=== PATIENT | female | born 1995 | race Caucasian/White ===

== ENCOUNTER → 2020-05-13 16:56 | Outpatient (BNVA) | payer SELFPAY | PROVIDERS: Family Provider Family Medicine; PCP Family Medicine; Visit Provider Emergency Medicine | DX: Z11.59 Encounter for screening for other viral diseases (principal) | CPT/HCPCS: 87635 ==

== ENCOUNTER → 2020-05-23 18:31 | Outpatient (BNVA) | payer OTHER, SELFPAY | PROVIDERS: Family Provider Family Medicine; PCP Family Medicine; Visit Provider Emergency Medicine | DX: Z11.59 Encounter for screening for other viral diseases (principal) | CPT/HCPCS: 87635 ==

== ENCOUNTER → 2021-07-25 12:50 | Outpatient (BNVA) | payer SELFPAY | PROVIDERS: Family Provider Family Medicine; PCP Family Medicine; Visit Provider Registered Nurse Neonatal Intensive Care | DX: Z11.59 Encounter for screening for other viral diseases (principal); N39.0 Urinary tract infection, site not specified; Z20.2 Contact with and (suspected) exposure to infections with a predominantly sexual mode of transmission | CPT/HCPCS: 81000; 87491; 87591; 87661 ==

== ENCOUNTER → 2022-09-08 13:36 | Outpatient (BNVA) | payer MEDICAID, SELFPAY | PROVIDERS: Family Provider Family Medicine; PCP Family Medicine; Visit Provider Nurse Practitioner Women's Health | DX: N92.6 Irregular menstruation, unspecified (principal); Z34.90 Encounter for supervision of normal pregnancy, unspecified, unspecified trimester | CPT/HCPCS: 80307; 81000; 81025; 85027; 86592; 86762; 86803; 86850; 86900; 87086; 87340; 87806 ==

== ENCOUNTER 2022-09-09 12:49 | Outpatient (CLI) | payer MEDICAID, SELFPAY ==
--- NOTE | 2022-09-09 12:45 | US_ITS ---
WS: [id number] OBSTETRICAL ULTRASOUND COMPLETE HISTORY: Anatomic screening. COMPARISON: None available. Single intrauterine gestation in Cephalic presentation. Cervix is Closed and normal length. Cervical length is 3.3 cm. Normal amount of amniotic fluid surrounds the fetus. Placenta: Posterior, no previa or abruption. Placenta grade 1 Heart: 141 BPM. Four chambers are identified. RIGHT and LEFT outflow tracts are unremarkable. Anatomy: Intracranial structures and spine are normal. kidneys, stomach and urinary bladd er are unremarkable. Minimal prominence of the renal pelves but still within normal limits. Abdominal wall, three-vessel cord and cord insertion site are normal. 4 extremities are present. profile: Limited. Gender: Female. measurements: BPD = 5.4 cm = 22w2d HC = 20.4 cm = 22w3d AC = 16.4 cm = 21w3d FL = 3.7 cm = 21w4d EFW: 440 g. Biometry is internally concordant. AGA by ultrasound: 22w0d LUIS by ultrasound: 01/13/2023 US/US OB >= 14 weeks fetus [id number] IMPRESSION: 1. Single intrauterine gestation of 22w0d with an LUIS of 01/13/2023. 2. Limited evaluation of the profile. Very minimal fluid distention of t he renal pelves but still within normal limits. This can be reevaluated during late second trimester or early third trimester to ensure no progression. Otherw ise the anatomic screening survey appears normal.
== END 2022-09-09 12:50 | disposition home or self-care (01) ==
LOC: RAD 12:50
PROVIDERS: PCP Family Medicine; Visit Provider Nurse Practitioner Women's Health
DX: O09.30 Supervision of pregnancy with insufficient antenatal care, unspecified trimester (principal); Z78.9 Other specified health status; Z3A.22 22 weeks gestation of pregnancy
CPT/HCPCS: 76805

== ENCOUNTER → 2022-09-27 08:23 | Outpatient (BNVA) | payer MEDICAID, SELFPAY | PROVIDERS: PCP Family Medicine; Visit Provider Nurse Practitioner Women's Health | DX: O09.30 Supervision of pregnancy with insufficient antenatal care, unspecified trimester (principal); Z3A.00 Weeks of gestation of pregnancy not specified | CPT/HCPCS: 82950; 84315; 87086 ==

== ENCOUNTER → 2022-09-30 07:22 | Outpatient (BNVA) | payer MEDICAID, SELFPAY | PROVIDERS: PCP Family Medicine; Visit Provider Obstetrics & Gynecology | DX: O09.30 Supervision of pregnancy with insufficient antenatal care, unspecified trimester (principal); Z3A.00 Weeks of gestation of pregnancy not specified | CPT/HCPCS: 84315; 87086; 87491; 87591; 87661; 88175 ==

== ENCOUNTER → 2022-10-13 15:47 | Outpatient (BNVA) | payer MEDICAID, SELFPAY | PROVIDERS: PCP Family Medicine; Visit Provider Obstetrics & Gynecology | DX: O09.30 Supervision of pregnancy with insufficient antenatal care, unspecified trimester (principal); Z3A.26 26 weeks gestation of pregnancy | CPT/HCPCS: 76816 ==

== ENCOUNTER → 2022-10-17 08:54 | Outpatient (BNVA) | payer MEDICAID, SELFPAY | PROVIDERS: PCP Family Medicine; Visit Provider Obstetrics & Gynecology | DX: O09.30 Supervision of pregnancy with insufficient antenatal care, unspecified trimester (principal); O98.819 Other maternal infectious and parasitic diseases complicating pregnancy, unspecified trimester; B37.31 Acute candidiasis of vulva and vagina; O99.330 Smoking (tobacco) complicating pregnancy, unspecified trimester; Z3A.27 27 weeks gestation of pregnancy; F17.200 Nicotine dependence, unspecified, uncomplicated | CPT/HCPCS: 81000; 85025 ==

== ENCOUNTER → 2022-10-24 15:52 | Outpatient (BNVA) | payer MEDICAID, SELFPAY | PROVIDERS: PCP Family Medicine; Visit Provider Obstetrics & Gynecology | DX: Z34.00 Encounter for supervision of normal first pregnancy, unspecified trimester (principal) | CPT/HCPCS: 81000 ==

== ENCOUNTER → 2022-11-07 15:50 | Outpatient (BNVA) | payer MEDICAID, SELFPAY | PROVIDERS: PCP Family Medicine; Visit Provider Obstetrics & Gynecology | DX: Z34.90 Encounter for supervision of normal pregnancy, unspecified, unspecified trimester (principal) | CPT/HCPCS: 84315; 87086 ==

== ENCOUNTER → 2022-11-21 16:00 | Outpatient (BNVA) | payer MEDICAID, SELFPAY | PROVIDERS: PCP Family Medicine; Visit Provider Obstetrics & Gynecology | DX: Z34.90 Encounter for supervision of normal pregnancy, unspecified, unspecified trimester (principal) | CPT/HCPCS: 84315; 87077; 87086; 87184 ==

== ENCOUNTER → 2022-12-06 10:17 | Outpatient (BNVA) | payer MEDICAID, SELFPAY | PROVIDERS: PCP Family Medicine; Visit Provider Nurse Practitioner Women's Health | DX: O09.30 Supervision of pregnancy with insufficient antenatal care, unspecified trimester (principal); Z3A.00 Weeks of gestation of pregnancy not specified | CPT/HCPCS: 80307; 81000; 85025; 87077; 87086; 87184 ==

== ENCOUNTER → 2022-12-07 18:16 | Outpatient (BNVA) | payer MEDICAID, SELFPAY | PROVIDERS: PCP Family Medicine; Visit Provider Nurse Practitioner Women's Health | DX: O09.30 Supervision of pregnancy with insufficient antenatal care, unspecified trimester (principal); Z3A.00 Weeks of gestation of pregnancy not specified | CPT/HCPCS: 80324; 80359 ==

== ENCOUNTER → 2022-12-13 08:55 | Outpatient (BNVA) | payer MEDICAID, SELFPAY | PROVIDERS: PCP Family Medicine; Visit Provider Nurse Practitioner Women's Health | DX: Z34.00 Encounter for supervision of normal first pregnancy, unspecified trimester (principal) | CPT/HCPCS: 76815; 76817 ==

== ENCOUNTER → 2022-12-19 14:47 | Outpatient (BNVA) | payer MEDICAID, SELFPAY | PROVIDERS: PCP Family Medicine; Visit Provider Obstetrics & Gynecology | DX: O99.320 Drug use complicating pregnancy, unspecified trimester (principal); O26.10 Low weight gain in pregnancy, unspecified trimester; O23.40 Unspecified infection of urinary tract in pregnancy, unspecified trimester; O26.899 Other specified pregnancy related conditions, unspecified trimester; O99.330 Smoking (tobacco) complicating pregnancy, unspecified trimester; O09.30 Supervision of pregnancy with insufficient antenatal care, unspecified trimester; Z3A.00 Weeks of gestation of pregnancy not specified | CPT/HCPCS: 80307; 81000; 87077; 87081; 87086; 87184 ==

== ENCOUNTER 2022-12-26 12:03 | Outpatient (CLI) | payer MEDICAID, SELFPAY ==
[2022-12-26 13:26] LABS: Urine Total Protein 12.8 mg/dL (0-150)
[2022-12-26 14:07] LABS: Total Volume, Urine 1650 mL; Urine Total Protein 24 Hour 211.2 mg/24hr (0-150)
== END 2022-12-26 12:04 | disposition home or self-care (01) ==
LOC: LAB 12:07
PROVIDERS: PCP Family Medicine; Visit Provider Obstetrics & Gynecology
DX: R80.9 Proteinuria, unspecified (principal)
CPT/HCPCS: 84156

== ENCOUNTER 2022-12-31 08:53 | Inpatient (IN) | payer MEDICAID, SELFPAY ==
[2022-12-31] VITALS (89 sets, daily range): BP systolic 95–236; BP diastolic 52–129; PULSE 47–141; RESP 15–20; TEMP 35.6–36.8; O2SAT 89–100; BMI 25.7
[2022-12-31 06:32] LABS: Amphetamines Screen Urine Negative (Negative); Barbiturates Screen Urine Negative (Negative); Benzodiazepines Screen Urine Negative (Negative); Cocaine Screen Urine Negative (Negative); Opiate Screen Urine Negative (Negative); PCP Screen Urine Negative (Negative); THC Screen Urine Positive (Negative)
[2022-12-31 06:39] LABS: Actim Prom Negative
[2022-12-31 06:47] LABS: Add Urine Microscopic? YES; Bilirubin Urine Neg (Negative); Blood Urine 3+ (Negative); Glucose Urine UA Norm (Normal); Ketones Urine 1+ (Negative); Leukocyte Esterase Urine 2+ (Negative); Nitrate Urine Negative (Negative); Protein Urine 1+ (Negative); Urine Appearance Cloudy (CLEAR); Urine Color Yellow (Yellow); Urobilinogen Urine 1 mg/dL (Negative); pH Urine 6 (5-7)
[2022-12-31 06:48] LABS: Add Urine Culture? No; Bacteria Urine 2+ /hpf; RBC Urine 0-4 /hpf (0-2); WBC Urine 15-25 /hpf (0-5)
[2022-12-31] MEDS: cefTRIAXone 2,000 MG in sodium chloride 0.9% (plus) 50 ML 100 MG IV (07:48)
[2022-12-31 09:25] LABS: Basophils # 0.1 10^3/uL (0.0-0.1); Basophils % 0.3 %; Eosinophils # 0.1 10^3/uL (0.0-0.8); Eosinophils % 0.4 %; Hematocrit 36.1 % (37.0-47.0); Hemoglobin 11.7 g/dL (11.5-15.3); Lymphocytes # 1.1 10^3/uL (0.8-4.8); Lymphocytes % 6.5 %; Mean Corpuscular HGB Conc 32.4 g/dL (30.0-36.0); Mean Corpuscular Volume 92.6 fl (81-99); Mean Platelet Volume 12.6 fL (7.4-10.4); Monocytes # 0.9 10^3/uL (0.2-0.9); Monocytes % 4.9 %; Neutrophils % 87.3 %; Nucleated Red Blood Cells % 0 %; Platelet Count 225 10^3/cmm (130-400); Red Cell Distribution Width 13.5 % (12.1-15.1); White Blood Count 17.5 10^3/uL (4.0-10.0)
[2022-12-31] MEDS: ondansetron 2 mg/ML SDV 2 mL 4 MG IVP ×2 (09:25→23:43)
[2022-12-31] MEDS: dextrose 5%-lactated ringers 1,000 ML 125 ML IV (09:25)
[2022-12-31] MEDS: fentaNYL 50 mcg/mL INJ 2mL IVP ×4 (09:25→14:15)
[2022-12-31] MEDS: lactated ringers 1,000 ML 999 ML IV ×2 (14:35→15:11)
--- NOTE | 2022-12-31 15:40 | P.ANESUD_ITS ---
Pre-Anesthetic Update Pre-Anesthetic Assessment: Date of Surgery/Procedure: 01/01/23 Proposed Procedure: epidural Any changes to Pre-Anesthetic Assessment?: No Labs Last 48hrs: Short CBC 12/31/22 Range/Units 07:35 WBC 17.5 H (4.0-10.0) 10^3/ uL Hgb 11.7 (11.5-15.3) g/dL Hct 36.1 L (37.0-47.0) % MCV 92.6 (81-99) fl Plt Count 225 (130-400) 10^3/c mm Neut % (Auto) 87.3 % Neut # (Auto) 15.30 H (1.8-7.7) 10^3/u L Urine 12/31/22 Range/Units 06:00 Urine Color Yellow (Yellow) Urine Appearance Cloudy A (CLEAR) Urine pH 6 (5-7) Ur Specific Gravit y 1.020 (1.005-1.030) Urine Protein 1+ H (Negative) Urine Glucose (UA) Norm (Normal) Urine Ketones 1+ H (Negative) Urine Nitrate Negative (Negative) Urine Bilirubin Neg (Negative) Ur Leukocyte Carine ase 2+ H (Negative) Urine RBC 0-4 H (0-2) /hpf Urine WBC 15-25 H (0-5) /hpf Vitals: Temperature 98.2 F 01/01/23 07:46 Temperature Source Axillary 12/31/22 18:07 Pulse Rate 85 01/01/23 07:43 Pulse Rhythm Regular 12/31/22 10:00 Pulse Strength 3+ Normal 12/31/22 10:00 Respiratory Rate 18 12/31/22 18:07 Respiratory Effort Spontaneous 12/31/22 14:15 Respiratory Depth Normal 12/31/22 14:15 Respiratory Patter n Normal 12/31/22 12:34 Blood Pressure 126/56 01/01/23 07:43 Pulse Oximetry 90 01/01/23 06:04 Oxygen Delivery Me thod Room Air 12/31/22 10:00 Exam: Pre-Anes Outpt Exam: alert, oriented x 3, clear to auscultation gideon aterally and regular rate & rhythm Other Pertinent Information: Other Pertinent Information: Re-reviwed patient risk factors for epidural in setting of pre-exist hardware, including hardware infection, PDPH and inadequate analgesia d/t possible epidural space scarring. Patient would like to proceed Cardiac Studies: No Data to Display Anesthesia Procedures Epidural: Time Out Performed: Yes Consents Signed: Procedure Consent Consent: requested by attending/covering physician, from patient, from other, risks and benefits reviewed and patient agrees to proceed Lumbar Level: L3-L4 Epidural position: sitting Epidural procedure: sterile prep of area, 1% lidocaine to numb the area, 18 g needle, negative for paresthesia passed, neg for paresthesia, test dose given, 1.5% xylocaine 1:200k epi (5), 0.2% Ropivacaine bolus ml (5), placed PCEA, no systemic response, sterile dressing applied, L.U.D. no apparent complications and 0.2% Ropiavacaine @ mls/hr (13) Additional Comments: ASHER at7 cm, threaded to 13 cm. Adequate analgesia obtained
--- NOTE | 2022-12-31 16:02 | PM.OPHPUD ---
Labor & Delivery H&P Update Date of Procedure: December 31, 2022 Date H&P Performed: 12/19/22 Changes to previous documentation: The patient presents in active labor. Cervix progressed to 5/100/-3 Admission Diagnosis: @38w1d, late care, sterilization consult, drug use affecting , low maternal weight gain, tobacco smoking in Related Problem List Diagnoses (1) Drug use affecting : (2) Sterilization consult: (3) Late care affecting : (4) Low maternal weight gain: (5) Tobacco smoking affecting : (6) Heartburn during , antepartum:
[2022-12-31] MEDS: alum-mag-hydroxide-sime 30 mL UDC PO (18:46)
[2022-12-31] MEDS: oxytocin 30 UNIT/500 ML BAG IV (22:05)
[2023-01-01] VITALS (52 sets, daily range): BP systolic 101–135; BP diastolic 56–84; PULSE 70–147; RESP 15–16; TEMP 36.6–37.1; O2SAT 83–100
--- NOTE | 2023-01-01 06:27 | P.PCNOB_ITS ---
Delivery Note: Date of delivery: January 01, 2023 Pre-delivery diagnoses: iup@ 38w2d, Late and insufficient care, drug using during , low maternal weight gain, GERD, tobacco abuse, sterilization consult. Post-delivery diagnoses: same-delivered Procedure: Delivering Physician: paula Estimated blood loss (mL): 75 Findings: term male in the cephalic presentation. Pre-Delivery Course: The patient presented in active labor. She had AROM of thick meconium to augment labor at 8 cm. She received an epidural for pain management. She had complete cervical dilation and began pushing. Delivery: The patient had complete cervical dilation and began to push. The head delivered in the straight OP position over an intact perineum under epidural anesthesia. The nose and mouth were bulb suctioned. The shoulders and body delivered atraumatically. The baby was placed onto the mother's abdomen. The cord was clamped and cut. Cord blood was obtained. The placenta delivered spontaneously. It was inspected and found to be intact. Inspection of the perineum revealed a second-degree laceration with no extension. It was repaired in the usual fashion. Estimated blood loss 75 mL. Apgars on baby were 8 at 1 minute and 9 at 5 minutes. Weight of baby is 7 pounds 2 ounces. Mother and ba by were stable post delivery. History History History 1 Term 0 0 Miscarriages/Ectopic 0 Living Children 0 Coding Level of Care Code Acute Code for Chg Fwd Diagnoses
[2023-01-01] MEDS: HYDROcodone-acetaminophen 5-325 mg Tablet PO (07:57)
[2023-01-01] MEDS: ibuprofen 800 mg tablet PO ×3 (09:00→20:57)
[2023-01-01] MEDS: docusate sodium 100 mg Capsule PO ×2 (09:01→20:57)
[2023-01-01] MEDS: prenatal vitamin Capsule 1 CAP PO (09:01)
[2023-01-01 18:52] LABS: Hematocrit 28.3 % (37.0-47.0); Hemoglobin 9.4 g/dL (11.5-15.3); Mean Corpuscular HGB Conc 33.2 g/dL (30.0-36.0); Mean Corpuscular Hemoglobin 30.7 pg (28.0-34.0); Mean Corpuscular Volume 92.5 fl (81-99); Mean Platelet Volume 12.7 fL (7.4-10.4); Platelet Count 206 10^3/cmm (130-400); Red Blood Count 3.06 10^6/uL (4.1-5.3); Red Cell Distribution Width 13.6 % (12.1-15.1); White Blood Count 24.4 10^3/uL (4.0-10.0)
--- NOTE | 2023-01-01 19:35 | PC.NURSE ---
[facility] at bedside.
[2023-01-02 04:19] VITALS: BP 109/64; PULSE 72; RESP 16; TEMP 36.9; O2SAT 98
--- NOTE | 2023-01-02 06:19 | P.ANESASSM_ITS ---
Pre-Anesthetic Assessment Height/Weight: Height 1.6 m Weight 65.771 kg Temp Pulse Resp BP Pulse Ox O2 Del Method 97.9 F 74 16 119/73 97 Room Air 01/01/23 21:04 01/01/23 21:04 01/01/23 21:04 01/01/23 21:04 01/01/23 21:04 01/01/23 21:04 Preop Diagnosis: Desired Sterilization Operation Date: 01/02/23 07:10 Proposed Procedures p Post Bilateral Tubal Ligation(Bilateral) - Adilene Martinez MD Familial anesthetic complications: none Was Beta Sarah taken within 24 hours: N/A Was Clonidine taken within 24 hours: N/A Social Tobacco (marijuana) and No alcohol Exam alert, oriented x 3, clear to auscultation bilaterally and regular rate & rhythm Airway Submandibular: within normal limits Cervical ROM: within normal limits Mallampati: Class II Dentition: chipped History/ROS No significant history except as noted and No significant complaints Pulmonary None reported CV/HEM None reported None reported Hepatic None reported GI Gastroesophageal Reflux Disease Metabolic None reported [facility] [place], [place]/sk Scoliosis surgery with rods. Epidural placed previously for vaginal delivery without complications Neuropsych None reported Scoliosis surgery Anesthetic Plan ASA status: 2 Anesthesia: Anesthesia Evaluation, General and Regional (specify below) (spinal) Risk of > 500 ml blood loss (7ml/kg in children): No Medications/Allergies Home Medications Medication Instructions Recorded Confirmed Last Taken Type prenat.vits,bakari,spy-fpiw-mhheg 1 tab PO DAILY 09/27/22 12/31/22 12/30/22 History famotidine 20 mg tablet (Pepcid) 20 mg PO BID #60 tabs 12/06/22 12/31/22 12/30/22 Rx Allergies Allergy/AdvReac Type Severity Reaction Status Date / Time naproxen Allergy chest pains Verified 12/31/22 07:30 cephalexin AdvReac Mild ADR-Itching Verified 12/31/22 07:30 Current Medications Generic Name Dose Route Start Last Admin Trade Name Freq PRN Reason Stop Dose Admin Hydrocodone Bitart/Acetaminophen 1 - 2 tab 01/01/23 06:26 01/01/23 07:57 Hydrocodone-Acetaminophen 5-325 Mg Tablet PO 1 tab Q6H PRN Administration MODERATE TO SEVERE PAIN Al Hydrox/Mg Hydrox/Simethicone 30 ml 12/31/22 08:58 12/31/22 18:46 Nwdw-Run-Amjitkqrt-Nico 30 Ml Udc PO 30 ml Q4H PRN Administration INDIGESTION Docusate Sodium 100 mg 01/01/23 09:00 01/01/23 20:57 Docusate Sodium 100 Mg Capsule PO 100 mg BID FUENTES Administration Fentanyl 25 - 100 mcg 12/31/22 09:00 12/31/22 14:15 Fentanyl 50 Mcg/Ml Inj 2ml IVP 50 mcg Q1H PRN Administration SEVERE PAIN Dextrose/Lactated Ringer's 1,000 mls @ 125 mls/hr 12/31/22 09:00 12/31/22 14:35 Dextrose 5%-Lactated Ringers IV Infused .Q8H FUENTES Infusion Lactated Ringer's 1,000 mls @ 999 mls/hr 12/31/22 14:33 12/31/22 15:15 Lactated Ringers IV 125 mls/hr .Q1H1M PRN Infusion See label comments Ropivacaine 200 mg in 100 mls @ 13 mls/hr 12/31/22 14:45 01/01/23 06:15 Naropin Premix EPIDURAL 0 mls/hr .Q7H42M FUENTES Infusion Oxytocin 30 unit in 500 mls @ 1 mls/hr 12/31/22 22:00 01/01/23 09:00 Pitocin IV Infused .Q24H FUENTES Titration Protocol 1 MILLIUNIT/MIN Ibuprofen 800 mg 01/01/23 09:00 01/01/23 20:57 Ibuprofen 800 Mg Tablet PO 800 mg TID FUENTES Administration Ondansetron HCl 4 mg 12/31/22 08:58 12/31/22 23:43 Ondansetron 2 Mg/Ml Sdv 2 Ml IVP 4 mg Q4H PRN Administration NAUSEA AND VOMITING Multivit/Folic Acid/Iron 1 cap 01/01/23 09:00 01/01/23 09:01 Vitamin Capsule PO 1 cap DAILY FUENTES Administration PFSH Anesthesia Medical History No pertinent past medical history Neghx: htn,dm,thyroid,dvt/pe PCP: Dr. Garrett Surgical History H/O spinal fusion (~2012) Performed in [place], [place] Family History Denies family history of Colon cancer Ovarian cancer Diabetes Heart disease Breast cancer Family history of thyroid problem Hypertension Uterine cancer Stroke Hyperchloremia Social History Smoking and tobacco status: current every day smoker cigarettes Alcohol intake: never Substance/Drug Use: never Female Reproductive History : 1 Data Anesthesia 01/01/23 18:17 Short CBC 12/31/22 01/01/23 Range/Units 07:35 18:17 WBC 17.5 H 24.4 H (4.0-10.0) 10^3/uL Hgb 11.7 9.4 L (11.5-15.3) g/dL Hct 36.1 L 28.3 L (37.0-47.0) % MCV 92.6 92.5 (81-99) fl Plt Count 225 206 (130-400) 10^3/cmm Neut % (Auto) 87.3 % Neut # (Auto) 15.30 H (1.8-7.7) 10^3/uL Urine 12/31/22 Range/Units 06:00 Urine Color Yellow (Yellow) Urine Appearance Cloudy A (CLEAR) Urine pH 6 (5-7) Ur Specific [place] 1.020 (1.005-1.030) Urine Protein 1+ H (Negative) Urine Glucose (UA) Norm (Normal) Urine Ketones 1+ H (Negative) Urine Nitrate Negative (Negative) Urine Bilirubin Neg (Negative) Ur Leukocyte Esterase 2+ H (Negative) Urine RBC 0-4 H (0-2) /hpf Urine WBC 15-25 H (0-5) /hpf Cardiac Studies: No Data to Display
[2023-01-02] MEDS: famotidine 20 mg/2 mL INJ IVP (06:57)
[2023-01-02] MEDS: metoclopramide 5 mg/mL SDV 2 mL 10 MG IVP (06:58)
--- NOTE | 2023-01-02 06:59 | W.PM.OPSUD ---
Surgery/Procedure H&P Update DATE OF PROCEDURE: January 02, 2023 DATE H&P PERFORMED: 12/19/22 H&P UPDATE INFORMATION: I have reviewed H&P completed within last 30 days, I have examined patient prior to procedure and No changes to prior documentation CHANGES TO PREVIOUS DOCUMENTATION: The patient desires to proceed with sterilization PREOP DIAGNOSIS: Desired Sterilization PLANNED PROCEDURE: Operation Date: 01/02/23 07:10 Proposed Procedures p Post Bilateral Tubal Ligation(Bilateral) - Adilene Martinez MD
[2023-01-02] MEDS: citric acid-sodium citrate 30 mL UDC PO (07:00)
--- NOTE | 2023-01-02 08:41 | PM.DCS ---
Discharge Providers Date of Admission: 12/31/22 08:53 Date of Discharge: January 02, 2023 Attending Provider at Admission: Adilene Martinez MD Attending Provider at Discharge: Adilene Martinez MD Primary Care Provider: Dionna Garrett MD Diagnoses at Discharge Discharge Diagnosis (1) Drug use affecting : Status: Acute Permanent problem details: Positive amphetamines and methamphetamines at 34 weeks (2) Sterilization consult: Status: Acute (3) Late care affecting : Status: Acute (4) Low maternal weight gain: Status: Acute (5) Tobacco smoking affecting : Status: Acute (6) Heartburn during , antepartum: Status: Acute Reason for Visit Reason for Visit: contractions and possible ROM Hospital Course Hospital Course The patient was admitted for labor at term. She had spontaneous delivery of a term male . She was supposed to have a tubal, but the patient changed her mind. She is interested in LARC, instead. She requested discharge on PP day #1 Physical Exam Narrative: She is doing well this morning. No concerns. Const: COMMON NORMALS: no acute distress, average body habitus, patient oriented x3, no limitations, healthy appearing, alert and well nourished GENERAL APPEARANCE: cooperative, comfortable, well kempt and well developed ORIENTATION/CONSCIOUSNESS: Yes awake, Yes oriented to person, Yes oriented to place and Yes oriented to time Resp: COMMON NORMALS: normal respiratory effort EFFORT & INSPECTION: Yes able to speak in complete sentences GI: COMMON NORMALS: Soft to palpation and non-tender PALPATION: Yes Soft to palpation Extremity: COMMON NORMALS: no calf tenderness Neuro: COMMON NORMALS: patient oriented x3 SENSORIUM/ORIENTATION: Yes alert, Yes oriented to person, Yes oriented to place and Yes oriented to time Psych: APPEARANCE: Yes well kempt Urinary Catheter Management: Oliveira: Cath Placed During This Visit: yes, but has since been removed by the nurse Reason for Continuing Indwelling Catheter: Decision to DC Catheter Urinary Catheter Date of Insertion: 12/31/22 Urinary Catheter Time of Insertion: 16:15 Date Urinary Catheter Removed: 01/01/23 Time Urinary Catheter Discontinued: 04:40 Discharge Data Studies Completed and Pending Laboratory Results WBC 24.4 10^3/uL (4.0-10.0) H 01/01/23 18:17 RBC 3.06 10^6/uL (4.1-5.3) L 01/01/23 18:17 Hgb 9.4 g/dL (11.5-15.3) L 01/01/23 18:17 Hct 28.3 % (37.0-47.0) L 01/01/23 18:17 MCV 92.5 fl (81-99) 01/01/23 18:17 MCH 30.7 pg (28.0-34.0) 01/01/23 18:17 MCHC 33.2 g/dL (30.0-36.0) 01/01/23 18:17 RDW 13.6 % (12.1-15.1) 01/01/23 18:17 Plt Count 206 10^3/cmm (130-400) 01/01/23 18:17 MPV 12.7 fL (7.4-10.4) H 01/01/23 18:17 Neut % (Auto) 87.3 % 12/31/22 07:35 Lymph % (Auto) 6.5 % 12/31/22 07:35 [place] % (Auto) 4.9 % 12/31/22 07:35 Eos % (Auto) 0.4 % 12/31/22 07:35 Baso % (Auto) 0.3 % 12/31/22 07:35 Neut # (Auto) 15.30 10^3/uL (1.8-7.7) H 12/31/22 07:35 Lymph # (Auto) 1.1 10^3/uL (0.8-4.8) 12/31/22 07:35 [place] # (Auto) 0.9 10^3/uL (0.2-0.9) 12/31/22 07:35 Eos # (Auto) 0.1 10^3/uL (0.0-0.8) 12/31/22 07:35 Baso # (Auto) 0.1 10^3/uL (0.0-0.1) 12/31/22 07:35 Nucleated RBC % (auto) 0 % 12/31/22 07:35 Nucleated RBCs # 0.0 /100WBC 12/31/22 07:35 Insulin-like GF I Negative 12/31/22 06:27 Urine Color Yellow (Yellow) 12/31/22 06:00 Urine Appearance Cloudy (CLEAR) A 12/31/22 06:00 Urine pH 6 (5-7) 12/31/22 06:00 Ur Specific [place] 1.020 (1.005-1.030) 12/31/22 06:00 Urine Protein 1+ (Negative) H 12/31/22 06:00 Urine Glucose (UA) Norm (Normal) 12/31/22 06:00 Urine Ketones 1+ (Negative) H 12/31/22 06:00 Urine Blood 3+ (Negative) H 12/31/22 06:00 Urine Nitrate Negative (Negative) 12/31/22 06:00 Urine Bilirubin Neg (Negative) 12/31/22 06:00 Urine Urobilinogen 1 mg/dL (Negative) H 12/31/22 06:00 Ur Leukocyte Esterase 2+ (Negative) H 12/31/22 06:00 Urine RBC 0-4 /hpf (0-2) H 12/31/22 06:00 Urine WBC 15-25 /hpf (0-5) H 12/31/22 06:00 Ur Squamous Epith Cells 10-15 /hpf (0-5) H 12/31/22 06:00 Amorphous Sediment Not Reportable 12/31/22 06:00 Urine Bacteria 2+ /hpf (NONE) H 12/31/22 06:00 Urine Opiates Screen Negative ng/mL (Negative) 12/31/22 06:00 Ur Barbiturates Screen Negative ng/mL (Negative) 12/31/22 06:00 Ur Phencyclidine Scrn Negative ng/mL (Negative) 12/31/22 06:00 Ur Amphetamines Screen Negative ng/mL (Negative) 12/31/22 06:00 U Benzodiazepines Scrn Negative ng/mL (Negative) 12/31/22 06:00 Urine Cocaine Screen Negative ng/mL (Negative) 12/31/22 06:00 U Marijuana (THC) Screen Positive ng/mL (Negative) H 12/31/22 06:00 Vitals Last Vital Signs Temp 98.4 F 01/02/23 04:19 Pulse 72 01/02/23 04:19 Resp 16 01/02/23 04:19 BP 109/64 01/02/23 04:19 Pulse Ox 98 01/02/23 04:19 O2 Del Method Room Air 01/02/23 04:19 Discharge Plan Discharge Patient Disposition: Home Condition: Stable Prescriptions: Continued prenat.vits,bakari,ror-nyqw-yjwmt Tablet 1 tab PO DAILY famotidine [Pepcid] 20 mg tablet 20 mg PO BID Qty: 60 1RF Discharge Orders: Discharge Order (Routine); Ordered 01/02/23 Ordered By: Adilene Martinez Patient Instructions: Opioid Safety Discharge Attestations Time Spent in Discharge Care*: less than 30 min Quality Metrics Clinical Quality Measures [ No reported AMI, CVA or VTE this stay] Coding Level of Care Code Acute Code for Chg Fwd Diagnoses Drug use affecting O99.320 Sterilization consult Z30.09 Late care affecting O09.30 Low maternal weight gain O26.10 Tobacco smoking affecting O99.330 Heartburn during , antepartum O26.899; R12
[2023-01-02 09:00] VITALS: BP 104/76; PULSE 67; RESP 16; TEMP 36.5; O2SAT 97
[2023-01-02] MEDS: docusate sodium 100 mg Capsule PO (09:17)
[2023-01-02] MEDS: famotidine 20 mg Tablet PO (09:17)
[2023-01-02] MEDS: ibuprofen 800 mg tablet PO ×2 (09:17→15:33)
[2023-01-02] MEDS: prenatal vitamin Capsule 1 CAP PO (09:17)
--- NOTE | 2023-01-02 09:25 | ANE.PACU2 ---
Inpatient post-anesthesia follow up: Airway intact: Yes Vital signs: Temperature 98.4 F Pulse Rate 72 Respiratory Rate 16 Blood Pressure 109/64 Pulse Oximetry 98 Oxygen Delivery Me thod Room Air Oxygen Flow Rate Fraction of Inspir ed Oxygen Hydration adequate: Yes Nausea and vomiting: No Pain level: 2 Mental status: Baseline
[2023-01-02 15:34] VITALS: BP 115/76; PULSE 77; RESP 16; TEMP 36.6; O2SAT 98
[2023-01-02 18:34] VITALS: BP 120/72; PULSE 64; RESP 16; TEMP 37.1; O2SAT 99
== END 2023-01-02 18:34 | disposition home or self-care (01) | DRG 807 ==
LOC: OPOB 08:53 → OBGYN 08:53
PROVIDERS: Admitting Provider Obstetrics & Gynecology; PCP Family Medicine; Visit Provider Obstetrics & Gynecology
DX: O99.324 Drug use complicating childbirth (principal); Z37.0 Single live birth; F12.90 Cannabis use, unspecified, uncomplicated; O99.334 Smoking (tobacco) complicating childbirth; F17.210 Nicotine dependence, cigarettes, uncomplicated; O77.0 Labor and delivery complicated by meconium in amniotic fluid; O70.1 Second degree perineal laceration during delivery; Z3A.38 38 weeks gestation of pregnancy; O26.893 Other specified pregnancy related conditions, third trimester; K21.9 Gastro-esophageal reflux disease without esophagitis; Z87.440 Personal history of urinary (tract) infections
CPT/HCPCS: 36415; 51702; 59025; 59409; 80306; 81001; 84112; 85025; 85027; 96374; 96376; 99211; J0696; J1100; J2370; J2405; J2590; J2704; J2765; J2795; J3010; J3490; J7120; J7121

== ENCOUNTER → 2023-08-09 17:04 | Outpatient (BNVA) | payer MEDICAID, SELFPAY | PROVIDERS: PCP Family Medicine; Visit Provider Nurse Practitioner | DX: J02.9 Acute pharyngitis, unspecified (principal) | CPT/HCPCS: 87880 ==

== ENCOUNTER → 2023-09-03 18:15 | Outpatient (BNVA) | payer MEDICAID, SELFPAY | PROVIDERS: PCP Family Medicine; Visit Provider Emergency Medicine | DX: J02.9 Acute pharyngitis, unspecified (principal) | CPT/HCPCS: 87071; 87880 ==

== ENCOUNTER 2024-04-11 15:16 | Emergency (ER) | payer MEDICAID, SELFPAY ==
[2024-04-11 15:23] VITALS: BP 101/61; PULSE 85; RESP 16; TEMP 36.8; O2SAT 98; BMI 20.9
--- NOTE | 2024-04-11 15:41 | ED_ITS ---
HPI - Dental/Oral General: Chief complaint: Dental/Oral Stated complaint: dental problems Time Seen by Provider: 04/11/24 15:28 History of Present Illness: 28-year-old female comes in today for co mplaints of dental pain. Patient reports difficulty with opening her mouth wide due to pain. Patient appears nontoxic. Minimal swelling and bruising is noted to the face. Patient does have some mild swelling to the left side of the face. Respirations are even. Patient is managing secretions well. Patient appears in moderate pain. Related Data Previous Rx's Medication Instructions Recorded amoxicillin 875 mg tablet 875 mg PO BID 7 days #14 tabs 04/10/24 amoxicillin 875 mg-potassium 1 tab PO BID #14 tabs 04/11/24 clavulanate 125 mg tablet hydrocodone 5 mg-acetaminophen 325 1 tab PO Q6H PRN pain #7 tabs 04/11/24 mg tablet Allergies Allergy/AdvReac Type Severity Reaction Status Date / Time naproxen Allergy chest pains Verified 04/10/24 10:05 cephalexin AdvReac Mild ADR-Itching Verified 04/10/24 10:05 Review of Systems General: Reports: 10 or more systems reviewed and unremarkable except in HPI and below ENMT: Reports: dental pain PFSH ED PFSH: Medical History 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 Garrett Surgical History H/O spinal fusion (~2012) Performed in [place], [place]. Family History Denies family history of Colon cancer Ovarian cancer Diabetes Heart disease Breast cancer Family history of thyroid problem Hypertension Uterine cancer Stroke Hyperchloremia Social History Smoking and tobacco/nicotine status: unknown if used tobacco/nicotine Alcohol intake: never Substance/Drug Use: never Physical Exam Const: COMMON NORMALS: alert HENMT: COMMON NORMALS: normocephalic HEAD & SCALP: normocephalic MOUTH: Normal oral and palatal mucosa present OTHER: Mild left-sided facial swelling, decreased range of motion of the jaw due to pain. Posterior pharynx is pink and moist. No abnormal symmetry is noted in the posterior pharynx. Neck/C-Spine: COMMON NORMALS: full ROM Resp: COMMON NORMALS: normal respiratory effort and clear to auscultation bilaterally AUSCULTATION: clear to auscultation bilaterally Cardio: COMMON NORMALS: regular rate and regular rhythm RATE: regular rate RHYTHM: regular rhythm Back/Pelvis: COMMON NORMALS: thoracic and lumbar spine normal to inspection Extremity: COMMON NORMALS: full ROM Neuro: SENSORIUM/ORIENTATION: Yes alert Skin: COMMON NORMALS: turgor normal GENERAL SKIN EXAM: turgor normal Course Vital Signs: Vital signs: Vital Signs Temperature 98.2 F 04/11/24 15:23 Pulse Rate 85 04/11/24 15:23 Respiratory Rate 16 04/11/24 15:23 Blood Pressure 101/61 04/11/24 15:23 Pulse Oximetry 98 04/11/24 15:23 Oxygen Delivery Me thod Room Air 04/11/24 15:23 MDM - Dental/Oral Medical Decision Making 28-year-old female comes in today for complaints of jaw pain and difficulty opening mouth after dental procedure done on Monday. Patient had a wisdom tooth extracted on the left lower jaw Monday. Patient has reported increased pain and discomfort. Patient appears nontoxic. No significant redness or bruising is noted to the face. Minimal swelling is noted. Posterior pharynx is symmetrical with open airway. Lungs are clear to auscultation. Patient is managing secretions well. Vital signs are normal. Differential diagnosis dental abscess, trismus, malingering, dental pain. No signs of severe illness or injury is noted. Patient will be written for Augmentin for better coverage of dental infection. Patient will be given 7 tablets of hydrocodone to use for severe pain. Patient was given an injection of Toradol and dexamethasone in the ER for discomfort. Patient reported understanding of care plan need for follow- up or return to the ER. No radiology studies performed this visit Discharge Plan Discharge Patient Disposition: Home Clinical Impression: Dental abscess Condition: Stable Prescriptions: New amoxicillin-pot clavulanate 875-125 mg tablet 1 tab PO BID Qty: 14 0RF hydrocodone-acetaminophen 5-325 mg tablet 1 tab PO Q6H PRN (Reason: pain) Qty: 7 0RF No Action amoxicillin 875 mg tablet 875 mg PO BID 7 Days Qty: 14 0RF Discharge Orders: Discharge ED (Routine); Ordered 04/11/24 Ordered By: Doc Reyez Referrals: Dionna Garrett MD [Primary Care Provider] - Discharge Diet: Usual diet Discharge Activity: Increase activity as tolerated Patient Instructions: Opioid Safety, Pain Management Activity Restrictions/Additional Instructions: Drink plenty of water. Continue with acetaminophen and ibuprofen to help control pain. Use hydrocodone for severe pain. Stop plain amoxicillin and add the amoxicillin with potassium clavulanate for treatment of possible infection. Use ice or heat for further pain relief. Follow-up with dentist at soonest available appointment. Return to ED for new concerns. Coding Level of Care Code ED Client Relations Specialist for Viry Metcalf
[2024-04-11] MEDS: HYDROcodone-acetaminophen 7.5-325 mg Tablet 1 TAB PO (16:09)
[2024-04-11] MEDS: ketorolac 30 mg/mL INJ IM (16:10)
[2024-04-11] MEDS: dexamethasone 10 mg/mL INJ IM (16:12)
[2024-04-11 16:14] VITALS: BP 101/61; PULSE 85; RESP 15; O2SAT 98
== END 2024-04-11 16:16 | disposition home or self-care (01) ==
PROVIDERS: Emergency Provider Nurse Practitioner Family; PCP Family Medicine
DX: K04.7 Periapical abscess without sinus (principal)
CPT/HCPCS: 96372; 99284; J1100; J1885

== ENCOUNTER 2024-04-13 10:25 | Emergency (ER) | payer MEDICAID, SELFPAY ==
[2024-04-13] VITALS (11 sets, daily range): BP systolic 91–118; BP diastolic 52–94; PULSE 57–99; RESP 16–18; TEMP 36.7; O2SAT 95–99; BMI 20.9
--- NOTE | 2024-04-13 10:56 | CTR_ITS ---
PROCEDURE INFORMATION: Exam: CT Neck With Contrast Exam date and time: 04/13/2024 11:35 AM Age: 28 years old Clinical indication: Neck pain and other: Left mandibular pain; Prior surgery; Surgery date: 3-7 days post-operative; Surgery type: Left lower wisdom tooth extraction; Additional info: Neck swelling, left lower wisdom tooth extraction 6 days ago; Trismus and TECHNIQUE: Imaging protocol: Computed tomography of the neck with contrast. Radiation optimization: All CT scans at this facility use at least one of these dose optimization techniques: automated exposure control; mA and/or kV adjustment per patient size (includes targeted exams where dose is matched to clinical indication); or iterative reconstruction. Contrast material: OMNIPAQUE 350; Contrast volume: 80 ml; Contrast route: INTRAVENOUS (IV); COMPARISON: No relevant prior studies available. RADIATION DOSE METRICS: Total DLP (mGy-cm): 176.74 FINDINGS: Salivary glands: Normal. Glands are normal in size. Teeth: Post left mandibular wisdom tooth extraction. There is inflammatory changes with ill-defined collection at the medial aspect of the left mandibular wisdom tooth surgical site measuring 1.2 x 2.4 cm extending posteriorly, lateral to the left palatine tonsil. Pharynx: There is fat stranding extending caudally along the left aspect of the oropharynx at the level of the left piriform sinus. There is secondary mild mass effect on the left palatine tonsil which is deviated medially. Prevertebral and retropharyngeal spaces: Unremarkable. Larynx: Unremarkable. Epiglottis is normal. Thyroid: Hypodense left thyroid nodule measuring 5 mm surgical changes of posterior instrumentation of the thoracic spine. Trachea: Visualized trachea is unremarkable. Lungs: Unremarkable as visualized. Lymph nodes: Prominent reactive left upper cervical lymph nodes measuring up to 1.2 cm in short axis at level 2A. Bones/joints: Segmentation anomaly at C3-C4 level. Soft tissues: Unremarkable. No significant soft tissue swelling. CT/CT neck w con* [id number] IMPRESSION: Post left mandibular wisdom tooth extraction with inflammatory changes along the left aspect of the oropharynx and hypopharynx and early abscess formation lateral to the left palatine tonsil measuring 2.4 x 1.2 cm. COMMENTS: Consistent with the [employer]'s Incidental Findings Committee white paper (J Am Gwen Radiol 2015): In patients under 35 years old with an incidental thyroid nodule equal to or greater than [address], MRI or extrathyroidal US, further evaluation with dedicated thyroid US is recommended for patients with normal life expectancy and without comorbidities. For smaller nodules without suspicious features, no further evaluation or follow up is recommended.
--- NOTE | 2024-04-13 11:01 | ED_ITS ---
HPI - Neck Pain/Injury 2 General: Chief Complaint: Dental/Oral Stated Complaint: Left side lower jaw pain, can't swallow Time Seen by Provider: 04/13/24 10:49 History of Present Illness: 28-year-old female who presents with inc reased pain and swelling in the left upper neck and jaw area. The patient had her left lower wisdom tooth extracted on Monday. Reportedly during the nerve block, vascular structure was penetrated. The patient had transient blindness in her left eye which had resolved. Patient has had gradually worsening swelling in the left submandibular area, primarily at the base of her mandible. She states that she is having increasing difficulty swallowing as well as difficulty opening her mouth. Patient has previously been seen at urgent care as well as in the emergency department earlier in the week because of the same issue. She was given a steroid injection which did help transiently. She has not had a fever. She has been on Augmentin as well as taking hydrocodone, alternated with Tylenol. Related Data Previous Rx's Medication Instructions Recorded amoxicillin 875 mg-potassium 1 tab PO BID #14 tabs 04/11/24 clavulanate 125 mg tablet hydrocodone 5 mg-acetaminophen 325 1 tab PO Q6H PRN pain #7 tabs 04/11/24 mg tablet Allergies Allergy/AdvReac Type Severity Reaction Status Date / Time naproxen Allergy chest pains Verified 04/10/24 10:05 cephalexin AdvReac Mild ADR-Itching Verified 04/10/24 10:05 Review of Systems 2 General: Reports: 10 or more systems reviewed and unremarkable except in HPI and below ENMT: Reports: throat pain and odynophagia; Denies: change in hearing PFSH ED 2 PFSH: Medical History 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 Garrett Surgical History H/O spinal fusion (~2012) Performed in [place], [place]. Family History Denies family history of Colon cancer Ovarian cancer Diabetes Heart disease Breast cancer Family history of thyroid problem Hypertension Uterine cancer Stroke Hyperchloremia Social History Smoking and tobacco/nicotine status: unknown if used tobacco/nicotine Alcohol intake: never Substance/Drug Use: never Physical Exam 2 Const: COMMON NORMALS: alert and well nourished OTHER: Patient appears mildly ill HENMT: COMMON NORMALS: external ears normal and Normal external nose present NOSE: Normal external nose present and Normal nares present EXTERNAL EAR: Y es external ears normal, Yes mastoids normal and Yes no periauricular adenopathy MOUTH: other (Patient has significant limitation in opening her mouth, able to open 1 cm) THROAT: other (Difficult to visualize the patient's posterior oropharynx due to trismus) OTHER: Left posterior oropharynx appears swollen. There is no subungual swelling. Neck/C-Spine: OTHER: Tenderness and swelling in the left submandibular area, difficult to assess if this is lymphadenopathy versus possible mass versus hematoma versus abscess Resp: OTHER: No acute respiratory distress Cardio: OTHER: Normal heart rate Neuro: SENSORIUM/ORIENTATION: Yes alert Course 2 ED course: Patient had an IV placed and labs obtained. She has been given IV Decadron 10 mg, Zofran for nausea and morphine for pain. She had a CT scan as well as laboratory studies. Her white blood cell count is normal. She does have an elevated CRP. CT scan shows an abscess in the oropharynx and hypopharynx region lateral to the palatine tonsil. Given her significant trismus and worsening despite antibiotics, the patient will need admission and probable operative drainage. We do not have ENT available here. Have discussed this with the patient and her mother. They request [facility] for transfer. 1210pm transfer center has been contacte d for transfer. Images have been clouded 1231 - discussed with Dr. Shields (Oral Surgery) at [facility] - patient will need operative drainage of abscess. Requests the patient be transferred to the ED. patient has been accepted by Dr. Muniz at the emergency department at [facility] Vital Signs: Vital signs: Vital Signs Temperature 98.1 F 04/13/24 10:32 Pulse Rate 82 04/13/24 13:15 Respiratory Rate 17 04/13/24 13:15 Blood Pressure 96/57 04/13/24 13:15 Pulse Oximetry 97 04/13/24 13:15 Oxygen Delivery Me thod Room Air 04/13/24 13:15 MDM - Neck Pain/Injury Medical Decision Making 28-year-old female, status post left posterior wisdom tooth extraction 6 days ago with possible vascular injury. The patient presents today with increased swelling in the left posterior oropharynx region with associated trismus and difficulty swallowing. She is having no issues with airway at this time. She is tolerating her secretions. Will start an IV, give her IV fluids as well as IV Decadron 10 mg and IV morphine for pain and Zofran for nausea. Will obtain labs and a CT with contrast of the soft tissues of her neck. Differential includes hematoma, abscess, cellulitis, retained dental root, lymphadenopathy Lab Data 04/13/24 11:16 04/13/24 11:[address] 04/13/24 10:56 IMPRESSION: Post left mandibular wisdom tooth extraction with inflammatory changes along the left aspect of the oropharynx and hypopharynx and early abscess formation lateral to the left palatine tonsil measuring 2.4 x 1.2 cm. COMMENTS: Consistent with the [employer]'s Incidental Findings Committee white paper (J Am Gwen Radiol 2015): In patients under 35 years old with an incidental thyroid nodule equal to or greater than [address], MRI or extrathyroidal US, further evaluation with dedicated thyroid US is recommended for patients with normal life expectancy and without comorbidities. For smaller nodules without suspicious features, no further evaluation or follow up is recommended. Laboratory Results WBC 6.95 10^3/uL (3.29-11.43) 04/13/24 11:16 RBC 3.89 10^6/uL (3.85-5.65) 04/13/24 11:16 Hgb 11.90 g/dL (11.27-16.99) 04/13/24 11:16 Hct 35.3 % (36-47) L 04/13/24 11:16 MCV 90.7 fl (85-98) 04/13/24 11:16 MCH 30.6 pg (27-33) 04/13/24 11:16 MCHC 33.7 g/dL (30-55) 04/13/24 11:16 RDW 12.5 % (12.1-15.1) 04/13/24 11:16 Plt Count 167 10^3/cmm (157-399) 04/13/24 11:16 MPV 10.8 fL (7.4-10.4) H 04/13/24 11:16 Neut % (Auto) 75.9 % 04/13/24 11:16 Lymph % (Auto) 14.1 % 04/13/24 11:16 Gaines % (Auto) 9.2 % 04/13/24 11:16 Eos % (Auto) 0.3 % 04/13/24 11:16 Baso % (Auto) 0.1 % 04/13/24 11:16 Neut # (Auto) 5.27 10^3/uL (1.8-7.7) 04/13/24 11:16 Lymph # (Auto) 1.0 10^3/uL (0.8-4.8) 04/13/24 11:16 Gaines # (Auto) 0.6 10^3/uL (0.2-0.9) 04/13/24 11:16 Eos # (Auto) 0.0 10^3/uL (0.0-0.8) 04/13/24 11:16 Baso # (Auto) 0.0 10^3/uL (0.0-0.1) 04/13/24 11:16 Nucleated RBC % (auto) 0 % 04/13/24 11:16 Nucleated RBCs # 0.0 /100WBC 04/13/24 11:16 ESR 6 mm/hr (0-15) 04/13/24 11:16 Sodium 140 mmol/L (136-145) 04/13/24 11:16 Potassium 3.6 mmol/L (3.5-5.1) 04/13/24 11:16 Chloride 104 mmol/L (98-107) 04/13/24 11:16 Carbon Dioxide 24 mmol/L (22-29) 04/13/24 11:16 Anion Gap 15.6 (5-19) 04/13/24 11:16 BUN 18 mg/dL (6-20) 04/13/24 11:16 Creatinine 0.6 mg/dL (0.5-0.9) 04/13/24 11:16 GFR Calculation 118.2 mL/min (90-130) 04/13/24 11:16 Glucose 86 mg/dL (65-115) 04/13/24 11:16 Calculated Osmolality 291 mOsm/kg (285-295) 04/13/24 11:16 Lactic Acid 0.9 mmol/L (0.5-2.2) 04/13/24 11:16 Calcium 8.5 mg/dL (8.5-10.5) 04/13/24 11:16 Total Bilirubin 0.5 mg/dL (0.15-1.2) 04/13/24 11:16 AST 15 U/L (0-32) 04/13/24 11:16 ALT 13 U/L (0-33) 04/13/24 11:16 Alkaline Phosphatase 59 U/L (35-105) 04/13/24 11:16 C-Reactive Protein 33.5 mg/L (0.0-4.9) H 04/13/24 11:16 Total Protein 7.6 g/dL (6.6-8.7) 04/13/24 11:16 Albumin 4.2 g/dL (3.5-5.2) 04/13/24 11:16 Globulin 3.4 g/dL (1.3-4.6) 04/13/24 11:16 All radiology interpretation(s) finalized by discharge ED provider radiology interpretation(s): Patient has had a CT scan of her soft tissues of her neck which showed an abscess but shows an abscess measuring 2.4 cm x 1.2 cm in the left oropharynx and hypopharynx region lateral to the palatine tonsil Discharge Plan Discharge Patient Disposition: Xfer Short-Term Hosp Clinical Impression: Abscess after procedure, Oropharynx infection, Trismus Condition: Stable Discharge Orders: Transfer Out of Facility (Order); Ordered 04/13/24 Ordered By: Neema Wick Coding Level of Care Code ED Chief Lifestyle Officer for Vriy Metcalf
[2024-04-13 11:23] LABS: Basophils % 0.1 %; Eosinophils % 0.3 %; Hematocrit 35.3 % (36-47); Lymphocytes % 14.1 %; Mean Corpuscular HGB Conc 33.7 g/dL (30-55); Mean Corpuscular Hemoglobin 30.6 pg (27-33); Mean Corpuscular Volume 90.7 fl (85-98); Mean Platelet Volume 10.8 fL (7.4-10.4); Monocytes # 0.6 10^3/uL (0.2-0.9); Monocytes % 9.2 %; Neutrophils # 5.27 10^3/uL (1.8-7.7); Neutrophils % 75.9 %; Nucleated Red Blood Cells % 0 %; Platelet Count 167 10^3/cmm (157-399); Red Blood Count 3.89 10^6/uL (3.85-5.65); Red Cell Distribution Width 12.5 % (12.1-15.1); White Blood Count 6.95 10^3/uL (3.29-11.43)
[2024-04-13 11:27] LABS: Erythrocyte Sedimentation Rate 6 mm/hr (0-15)
[2024-04-13 11:39] LABS: Lactic Sepsis W/Reflex 0.9 mmol/L (0.5-2.2)
[2024-04-13 11:40] LABS: Alanine Aminotransferase 13 U/L (0-33); Albumin Level 4.2 g/dL (3.5-5.2); Alkaline Phosphatase 59 U/L (35-105); Anion Gap 15.6 (5-19); Aspartate Amino Transferase 15 U/L (0-32); Blood Urea Nitrogen 18 mg/dL (6-20); C Reactive Protein 33.5 mg/L (0.0-4.9); Calcium 8.5 mg/dL (8.5-10.5); Carbon Dioxide 24 mmol/L (22-29); Chloride 104 mmol/L (98-107); Globulin 3.4 g/dL (1.3-4.6); Glomerular Filtration Rate 118.2 mL/min (90-130); Glucose 86 mg/dL (65-115); Osmolality Calculated 291 mOsm/kg (285-295); Potassium 3.6 mmol/L (3.5-5.1); Sodium 140 mmol/L (136-145); Total Bilirubin 0.5 mg/dL (0.15-1.2); Total Protein 7.6 g/dL (6.6-8.7)
[2024-04-13] MEDS: sodium chloride 0.9% 1,000 ML 999 ML IV (12:08)
[2024-04-13] MEDS: ondansetron 2 mg/ML SDV 2 mL 4 MG IVP (12:11)
[2024-04-13] MEDS: morphine 4 mg/mL SDV 1 mL IVP (12:12)
[2024-04-13] MEDS: dexamethasone 10 mg/mL INJ IVP (12:12)
[2024-04-13] MEDS: clindamycin 900 MG/50 ML PREMIX 100 MG IV (12:45)
[2024-04-13] MEDS: iohexol 350 mg/mL 500 mL Btl (per mL) IV (15:22)
== END 2024-04-13 16:44 | disposition short-term general hospital (02) ==
PROVIDERS: Emergency Provider Emergency Medicine
DX: T81.49XA Infection following a procedure, other surgical site, initial encounter (principal); R25.2 Cramp and spasm; Z98.818 Other dental procedure status
CPT/HCPCS: 70491; 80053; 83605; 85025; 85651; 86140; 96374; 96375; 99285; J1100; J2270; J2405; J3490; J7030

== ENCOUNTER 2024-08-26 11:23 | Emergency (ER) | payer MEDICAID, SELFPAY ==
[2024-08-26 11:32] VITALS: BP 93/60; PULSE 82; TEMP 36.7; O2SAT 99; BMI 21.2
[2024-08-26 12:44] LABS: Basophils % 0.4 %; Eosinophils # 0.1 10^3/uL (0.0-0.8); Eosinophils % 0.9 %; Hematocrit 36.9 % (36-47); Lymphocytes # 1.2 10^3/uL (0.8-4.8); Lymphocytes % 11.1 %; Mean Corpuscular HGB Conc 34.7 g/dL (30-55); Mean Corpuscular Hemoglobin 31.4 pg (27-33); Mean Corpuscular Volume 90.4 fl (85-98); Mean Platelet Volume 11.2 fL (7.4-10.4); Monocytes # 0.7 10^3/uL (0.2-0.9); Monocytes % 6.3 %; Neutrophils # 8.41 10^3/uL (1.8-7.7); Neutrophils % 81.1 %; Nucleated Red Blood Cells % 0 %; Platelet Count 243 10^3/cmm (157-399); Red Blood Count 4.08 10^6/uL (3.85-5.65); Red Cell Distribution Width 13.1 % (12.1-15.1); White Blood Count 10.36 10^3/uL (3.29-11.43)
[2024-08-26 12:53] LABS: HCG, Serum Qual Negative (Negative)
[2024-08-26 13:01] LABS: Alanine Aminotransferase 27 U/L (0-33); Albumin Level 4.2 g/dL (3.5-5.2); Alkaline Phosphatase 70 U/L (35-105); Anion Gap 15.2 (5-19); Aspartate Amino Transferase 20 U/L (0-32); Blood Urea Nitrogen 6 mg/dL (6-20); Carbon Dioxide 25 mmol/L (22-29); Chloride 105 mmol/L (98-107); Creatinine Clr Calc Pharmacy 115.1704; Globulin 2.7 g/dL (1.3-4.6); Glomerular Filtration Rate 117.4 mL/min (90-130); Glucose 115 mg/dL (65-115); Lipase 18 U/L (13-60); Osmolality Calculated 293 mOsm/kg (285-295); Potassium 3.2 mmol/L (3.5-5.1); Sodium 142 mmol/L (136-145); Total Bilirubin 0.4 mg/dL (0.15-1.2); Total Protein 6.9 g/dL (6.6-8.7)
[2024-08-26 13:26] LABS: Bilirubin Urine Negative (Negative); Blood Urine 3+ (Negative); Glucose Urine UA Negative (Normal); Ketones Urine Trace (Negative); Leukocyte Esterase Urine 1+ (Negative); Nitrate Urine Negative (Negative); Protein Urine 1+ (Negative); Specific Gravity, Urine 1.029 (1.005-1.030); Urine Appearance Turbid (CLEAR); Urine Color Yellow (Yellow); pH Urine 5.5 (5-7)
[2024-08-26 13:28] LABS: Add Urine Microscopic? YES; Bacteria Urine 4+ /hpf; Hyaline Casts Urine 5.77 /lpf; Squamous Epithelial Cell Urine 21-50 /hpf (0-5); WBC Urine 51-100 /hpf (0-5)
[2024-08-26 13:54] LABS: UA Slide Review UA Slide Review Perf
[2024-08-26 13:55] LABS: Add Urine Culture? No
--- NOTE | 2024-08-26 13:59 | W.ED.NAVMDI ---
HPI - Nausea/Vomiting/Diarrhea General: Chief complaint: Nausea/Vomiting/Diarrhea Stated complaint: Diarrhea, Juditua Time Seen by Provider: 08/26/24 11:51 Source: patient Mode of arrival: ambulatory Limitations: no limitations History of Present Illness: 29yo female presents with diarrhea that has been ongoing for the past 2-1/2 weeks. Patient reports that around [place] that she began having diarrhea. States that multiple people at work have had a diarrheal type of illness, but hers is lasting much longer. Reports she was evaluated 2 days ago for the symptoms and prescribed dicyclomine and ondansetron. Reports that she did not have any improvement in her symptoms. She has also tried Imodium with no improvement. Patient states that she is having stool accidents at night when she is sleeping. Reports that when she eats she will have diarrhea shortly thereafter. Patient reports that she did have an episode of vomiting today, but has not previously vomited. Patient denies fever, chills, body aches, abdominal pain possibility of , any other concerns at this time. Associated symtoms: Denies chest pain Related Data Home Medications Medication Instructions Recorded Confirmed etonogestrel 68 mg subdermal subdermal 08/24/24 08/24/24 implant (Nexplanon) Previous Rx's Medication Instructions Recorded dicyclomine 10 mg capsule 10 mg PO TID diarrhea, cramping 08/24/24 #12 caps ondansetron 4 mg disintegrating 4 mg PO Q6H PRN nausea and 08/24/24 tablet vomiting #12 tabs sulfamethoxazole 800 1 tab PO DAILY 3 days #6 tabs 08/26/24 mg-trimethoprim 160 mg tablet Allergies Allergy/AdvReac Type Severity Reaction Status Date / Time naproxen Allergy chest pains Verified 08/26/24 11:36 cephalexin AdvReac Mild ADR-Itching Verified 08/26/24 11:36 Review of Systems Const: Denies: fever(s) or chills Card: Denies: chest pain Resp: Denies: dyspnea GI: Reports: vomiting (today only, once) and diarrhea (2.5 weeks); Denies: abdominal pain : Denies: flank pain PFSH ED PFSH: Medical History 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 Garrett Surgical History H/O spinal fusion (~2012) Performed in [place], [place] Family History Denies family history of Colon cancer Ovarian cancer Diabetes Heart disease Breast cancer Family history of thyroid problem Hypertension Uterine cancer Stroke Hyperchloremia Social History Smoking and tobacco/nicotine status: never used tobacco/nicotine Alcohol intake: never Substance/Drug Use: never Physical Exam Const: COMMON NORMALS: no acute distress, patient oriented x3, healthy appearing and alert OTHER: Patient is sitting upright in a recliner in no acute distress. She is able to give history with no difficulty. She is interactive with exam appropriately. No family is at bedside HENMT: COMMON NORMALS: normocephalic HEAD & SCALP: normocephalic Chest: CHEST: Yes Symmetrical chest wall rise Resp: COMMON NORMALS: normal respiratory effort GI: COMMON NORMALS: Soft to palpation and non-tender PALPATION: Yes Soft to palpation Extremity: COMMON NORMALS: full ROM Neuro: COMMON NORMALS: patient oriented x3 and moves all extremities SENSORIUM/ORIENTATION: Yes alert Psych: COMMON NORMALS: cooperative Course Vital Signs: Vital signs: Vital Signs Temperature 98.0 F 08/26/24 11:32 Pulse Rate 82 08/26/24 11:32 Blood Pressure 93/60 08/26/24 11:32 Pulse Oximetry 99 08/26/24 11:32 Oxygen Delivery Me thod Room Air 08/26/24 11:32 MDM - Nausea/Vomiting/Diarrhea Medical Decision Making 29yo female presents with diarrhea that has been ongoing for the past 2-1/2 weeks. Patient reports that around [place] that she began having diarrhea. States that multiple people at work have had a diarrheal type of illness, but hers is lasting much longer. Reports she was evaluated 2 days ago for the symptoms and prescribed dicyclomine and ondansetron. Reports that she did not have any improvement in her symptoms. She has also tried Imodium with no improvement. Patient states that she is having stool accidents at night when she is sleeping. Reports that when she eats she will have diarrhea shortly thereafter. Patient reports that she did have an episode of vomiting today, but has not previously vomited. Patient denies fever, chills, body aches, abdominal pain possibility of , recent travel, any other concerns at this time. Patient is nontoxic in appearance. Vital signs are stable. Differential diagnoses includes but are not limited to: Gastroenteritis, viral infection, colitis, diverticulitis Labs were obtained while awaiting room placement. No leukocytosis, CBC is grossly unremarkable. Potassium is noted to be 3.2, otherwise no electrolyte abnormalities. No indication of renal or hepatic dysfunction. UA with 1+ leukocyte esterase, 3+ blood. Urine microscopy with 4+ bacteria, 51-100 white blood cells, concerning for urinary tract infection. Discussed these findings with patient. Discussed with patient's no stool culture at this time as she is not having fevers, abdominal pain, or bloody/mucus stool to indicate culture. Patient does report multiple people at work recently had a diarrheal type illness. Advised this is likely viral in nature and discussed that norovirus in particular can last for several weeks. Discussed presence of urinary tract infection. Advised we would send in antibiotics. Patient did receive potassium supplementation while in the emergency department. A prescription of Bactrim has been sent to patient's pharmacy to treat the urinary tract infection and potentially help with the potassium. Recommend patient continue with Imodium for the diarrhea as well as make dietary changes. Advise she can continue with dicyclomine that was previously prescribed as well. Recommend she follow-up with primary care, call in 2 to 3 days with an update of symptoms and to discuss to recheck. Advised return to the emergency department if any rapid worsening symptoms, onset of fever associated with worsening, bloody/mucus stool, and as needed. Patient states understanding and has no further questions or concerns at this time. Medical Records I reviewed the patient's medical records. Lab Data I reviewed the patient's lab results. 08/26/24 12:37 08/26/24 12:37 Laboratory Results WBC 10.36 10^3/uL (3.29-11.43) 08/26/24 12:37 RBC 4.08 10^6/uL (3.85-5.65) 08/26/24 12:37 Hgb 12.80 g/dL (11.27-16.99) 08/26/24 12:37 Hct 36.9 % (36-47) 08/26/24 12:37 MCV 90.4 fl (85-98) 08/26/24 12:37 MCH 31.4 pg (27-33) 08/26/24 12:37 MCHC 34.7 g/dL (30-55) 08/26/24 12:37 RDW 13.1 % (12.1-15.1) 08/26/24 12:37 Plt Count 243 10^3/cmm (157-399) 08/26/24 12:37 MPV 11.2 fL (7.4-10.4) H 08/26/24 12:37 Neut % (Auto) 81.1 % 08/26/24 12:37 Lymph % (Auto) 11.1 % 08/26/24 12:37 Weakley % (Auto) 6.3 % 08/26/24 12:37 Eos % (Auto) 0.9 % 08/26/24 12:37 Baso % (Auto) 0.4 % 08/26/24 12:37 Neut # (Auto) 8.41 10^3/uL (1.8-7.7) H 08/26/24 12:37 Lymph # (Auto) 1.2 10^3/uL (0.8-4.8) 08/26/24 12:37 Weakley # (Auto) 0.7 10^3/uL (0.2-0.9) 08/26/24 12:37 Eos # (Auto) 0.1 10^3/uL (0.0-0.8) 08/26/24 12:37 Baso # (Auto) 0.0 10^3/uL (0.0-0.1) 08/26/24 12:37 Nucleated RBC % (auto) 0 % 08/26/24 12:37 Nucleated RBCs # 0.0 /100WBC 08/26/24 12:37 Sodium 142 mmol/L (136-145) 08/26/24 12:37 Potassium 3.2 mmol/L (3.5-5.1) L 08/26/24 12:37 Chloride 105 mmol/L (98-107) 08/26/24 12:37 Carbon Dioxide 25 mmol/L (22-29) 08/26/24 12:37 Anion Gap 15.2 (5-19) 08/26/24 12:37 BUN 6 mg/dL (6-20) 08/26/24 12:37 Creatinine 0.6 mg/dL (0.5-0.9) 08/26/24 12:37 GFR Calculation 117.4 mL/min (90-130) 08/26/24 12:37 Glucose 115 mg/dL (65-115) 08/26/24 12:37 Calculated Osmolality 293 mOsm/kg (285-295) 08/26/24 12:37 Calcium 9.0 mg/dL (8.5-10.5) 08/26/24 12:37 Total Bilirubin 0.4 mg/dL (0.15-1.2) 08/26/24 12:37 AST 20 U/L (0-32) 08/26/24 12:37 ALT 27 U/L (0-33) 08/26/24 12:37 Alkaline Phosphatase 70 U/L (35-105) 08/26/24 12:37 Total Protein 6.9 g/dL (6.6-8.7) 08/26/24 12:37 Albumin 4.2 g/dL (3.5-5.2) 08/26/24 12:37 Globulin 2.7 g/dL (1.3-4.6) 08/26/24 12:37 Lipase 18 U/L (13-60) 08/26/24 12:37 HCG, Qual Negative (Negative) 08/26/24 12:37 Urine Color Yellow (Yellow) 08/26/24 13:17 Urine Appearance Turbid (CLEAR) A 08/26/24 13:17 Urine pH 5.5 (5-7) 08/26/24 13:17 Ur Specific [place] 1.029 (1.005-1.030) 08/26/24 13: Urine Protein 1+ (Negative) A 08/26/24 13: Urine Glucose (UA) Negative (Normal) 08/26/24 13: Urine Ketones Trace (Negative) 08/26/24 13: Urine Blood 3+ (Negative) A 08/26/24 13: Urine Nitrate Negative (Negative) 08/26/24 13:17 Urine Bilirubin Negative (Negative) 08/26/24 13:17 Urine Urobilinogen 1.0 mg/dL (Negative) 08/26/24 13:17 Ur Leukocyte Esterase 1+ (Negative) A 08/26/24 13:17 Urine RBC 3-5 /hpf (0-2) 08/26/24 13:17 Urine WBC 51-100 /hpf (0-5) H 08/26/24 13:17 Ur Squamous Epith Cells 21-50 /hpf (0-5) 08/26/24 13:17 Amorphous Sediment Not Reportable 08/26/24 13:17 Urine Bacteria 4+ /hpf (NONE) H 08/26/24 13:17 Hyaline Casts 5.77 /lpf 08/26/24 13:17 No radiology studies performed this visit Discharge Plan Discharge Patient Disposition: Home Clinical Impression: Acute hypokalemia Acute cystitis Qualifiers: Hematuria presence: with hematuria Qualified Code(s): N30.01 - Acute cystitis with hematuria Diarrhea Qualifiers: Diarrhea type: presumed infectious Qualified Code(s): R19.7 - Diarrhea, unspecified Condition: Stable Prescriptions: New sulfamethoxazole-trimethoprim 800-160 mg tablet 1 tab PO DAILY 3 Days Qty: 6 0RF No Action Nexplanon 68 mg implant subdermal ondansetron 4 mg tablet,disintegrating 4 mg PO Q6H PRN (Reason: nausea and vomiting) Qty: 12 0RF Rx Instructions: 340b please dicyclomine 10 mg capsule 10 mg PO TID Qty: 12 0RF Discharge Orders: Discharge ED (Routine); Ordered 08/26/24 Ordered By: Armand Velasquez Discharge Diet: Advance as tolerated Discharge Activity: Resume usual activity Patient Instructions: Diarrhea - Adult, Loperamide (By mouth), Urinary Tract Infection in Women (ED), Hypokalemia (ED) Activity Restrictions/Additional Instructions: Your potassium was noted to be very mildly decreased. We did give you potassium replacement while in the emergency department. Your urine is positive for urinary tract infection. Bactrim has been sent to the pharmacy to begin treatment of the UTI. The diarrhea is likely viral in nature, especially since multiple people at work had similar symptoms. You may continue with [id number] Imodium as well as your previously prescribed dicyclomine. Making some dietary changes may help with the diarrhea as well. Avoid fatty and spicy foods. Begin with a bland diet and slowly increase as tolerated Follow-up with primary care, call in 2 to 3 days with an update of symptoms and to discuss her recheck Return to the emergency department if any rapid worsening symptoms, onset of fever associated with worsening, bloody or mucous diarrhea, and as needed Coding Level of Care Code ED Jewelry Racker for Viry Metcalf
[2024-08-26] MEDS: potassium chloride ER 20 mEq Tablet PO (14:48)
[2024-08-26 14:55] VITALS: BP 89/57; PULSE 69; O2SAT 95
== END 2024-08-26 14:57 | disposition home or self-care (01) ==
PROVIDERS: Emergency Medicine; Emergency Provider Nurse Practitioner
DX: E87.6 Hypokalemia (principal); N30.01 Acute cystitis with hematuria; R19.7 Diarrhea, unspecified
CPT/HCPCS: 36415; 80053; 81001; 83690; 84703; 85025; 99283

== ENCOUNTER → 2024-08-29 18:44 | Outpatient (BNVA) | payer MEDICAID, SELFPAY | PROVIDERS: Visit Provider Nurse Practitioner Family | DX: R19.7 Diarrhea, unspecified (principal) | CPT/HCPCS: 87045; 87177; 87209; 87338; 87427; 87449; 87493 ==

== ENCOUNTER 2024-08-31 18:25 | Emergency (ER) | payer MEDICAID, SELFPAY ==
[2024-08-31 18:29] VITALS: BP 100/65; PULSE 85; RESP 17; TEMP 36.9; O2SAT 100; BMI 28.3
--- NOTE | 2024-08-31 18:41 | ED_ITS ---
HPI - Back Pain/Injury 2 General: Chief Complaint: Back Pain/Injury Stated Complaint: pain in kidney area Time Seen by Provider: 08/31/24 18:34 Source: patient Mode of arrival: ambulatory Limitations: no limitations History of Present Illness: 29-year-old female who states she had you d diarrhea that been going on for weeks that is recently resolved diagnosed UTI earlier this week states that today she been having some lower back pain states pain is improved currently rates pain a 2 out of 10 she denies any fevers denies any vomiting or diarrhea. Associated symptoms: Deny abdominal pain, chills, dysuria, fever(s), nausea or vomiting Related Data Home Medications Medication Instructions Recorded Confirmed etonogestrel 68 mg subdermal subdermal 08/24/24 08/29/24 implant (Nexplanon) Previous Rx's Medication Instructions Recorded dicyclomine 10 mg capsule 10 mg PO TID diarrhea, cramping 08/24/24 #12 caps ondansetron 4 mg disintegrating 4 mg PO Q6H PRN nausea and 08/24/24 tablet vomiting #12 tabs potassium chloride 40 mEq/15 mL 40 meq (15 mL) PO BID 5 days #150 08/31/24 oral liquid mL Allergies Allergy/AdvReac Type Severity Reaction Status Date / Time naproxen Allergy chest pains Verified 08/29/24 16:32 cephalexin AdvReac Mild ADR-Itching Verified 08/29/24 16:32 Review of Systems 2 Const: Denies: fever(s), chills, body aches or change in appetite ENMT: Denies: throat pain or dental pain Card: Denies: chest pain Resp: Denies: dyspnea GI: Denies: abdominal pain, nausea, vomiting or diarrhea : Reports: flank pain; Denies: dysuria Musc: Reports: back pain; Denies: neck pain Skin/Breast: Denies: rash Neuro: Denies: headache(s) PFSH ED 2 PFSH: Medical History 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 Garrett Surgical History H/O spinal fusion (~2012) Performed in [place], [place]. Family History Denies family history of Colon cancer Ovarian cancer Diabetes Heart disease Breast cancer Family history of thyroid problem Hypertension Uterine cancer Stroke Hyperchloremia Social History Smoking and tobacco/nicotine status: current every day tobacco/nicotine user cigarettes Alcohol intake: never Substance/Drug Use: never Physical Exam 2 Const: COMMON NORMALS: no acute distress, patient oriented x3 and healthy appearing HENMT: COMMON NORMALS: normocephalic and atraumatic HEAD & SCALP: n ormocephalic and atraumatic Eye: COMMON NORMALS: Equal, round and reactive pupils present and EOMs intact bilaterally PUPIL: Yes Equal, round and reactive pupils present Neck/C-Spine: COMMON NORMALS: full ROM and supple Chest: COMMONS NORMALS: normal inspection of the chest and normal palpation of entire chest wall Resp: COMMON NORMALS: normal respiratory effort, No retractions, No use of accessory muscles and clear to auscultation bilaterally AUSCULTATION: clear to auscultation bilaterally Cardio: COMMON NORMALS: regular rate, regular rhythm and No murmurs present (Cardio) RATE: regular rate RHYTHM: regular rhythm GI: COMMON NORMALS: Normal to inspection, nondistended, normoactive bowel sounds present, Soft to palpation, non-tender and no masses PALPATION: Yes Soft to palpation Extremity: COMMON NORMALS: normal to inspection and full ROM Neuro: COMMON NORMALS: patient oriented x3, moves all extremities and no focal motor deficits Psych: COMMON NORMALS: mental status grossly normal, Normal thought process present and cooperative THOUGHT PROCESS: Normal thought process present Skin: COMMON NORMALS: no rashes or lesions noted and no wounds GENERAL SKIN EXAM: no rashes or lesions noted Course 2 Vital Signs: Vital signs: Vital Signs Temperature 98.5 F 08/31/24 18:29 Pulse Rate 85 08/31/24 18:29 Respiratory Rate 17 08/31/24 18:29 Blood Pressure 100/65 08/31/24 18:29 Pulse Oximetry 100 08/31/24 18:29 Oxygen Delivery Me thod Room Air 08/31/24 18:29 MDM - Back Pain/Injury Medical Decision Making Patient presents here with flank pain she is found to be hypokalemic did replace her mag did give her dose potassium here as well feel she stable for discharge we will put her on potassium replacement she is follow-up with PCP return if worsening she understands agrees to plan. Medical Records I reviewed the patient's medical records. Labs I reviewed the patient's lab results. 08/31/24 18:54 08/31/24 18:54 Laboratory Results WBC 4.71 10^3/uL (3.29-11.43) 08/31/24 18:54 RBC 4.16 10^6/uL (3.85-5.65) 08/31/24 18:54 Hgb 12.50 g/dL (11.27-16.99) 08/31/24 18:54 Hct 36.8 % (36-47) 08/31/24 18:54 MCV 88.5 fl (85-98) 08/31/24 18:54 MCH 30.0 pg (27-33) 08/31/24 18:54 MCHC 34.0 g/dL (30-55) 08/31/24 18:54 RDW 13.5 % (12.1-15.1) 08/31/24 18:54 Plt Count 245 10^3/cmm (157-399) 08/31/24 18:54 MPV 11.5 fL (7.4-10.4) H 08/31/24 18:54 Neut % (Auto) 71.2 % 08/31/24 18:54 Lymph % (Auto) 20.8 % 08/31/24 18:54 [place] % (Auto) 7.0 % 08/31/24 18:54 Eos % (Auto) 0.2 % 08/31/24 18:54 Baso % (Auto) 0.4 % 08/31/24 18:54 Neut # (Auto) 3.35 10^3/uL (1.8-7.7) 08/31/24 18:54 Lymph # (Auto) 1.0 10^3/uL (0.8-4.8) 08/31/24 18:54 [place] # (Auto) 0.3 10^3/uL (0.2-0.9) 08/31/24 18:54 Eos # (Auto) 0.0 10^3/uL (0.0-0.8) 08/31/24 18:54 Baso # (Auto) 0.0 10^3/uL (0.0-0.1) 08/31/24 18:54 Nucleated RBC % (auto) 0 % 08/31/24 18:54 Nucleated RBCs # 0.0 /100WBC 08/31/24 18:54 Sodium 137 mmol/L (136-145) 08/31/24 18:54 Potassium 2.4 mmol/L (3.5-5.1) L* 08/31/24 18:54 Chloride 98 mmol/L (98-107) 08/31/24 18:54 Carbon Dioxide 26 mmol/L (22-29) 08/31/24 18:54 Anion Gap 15.4 (5-19) 08/31/24 18:54 BUN 5 mg/dL (6-20) L 08/31/24 18:54 Creatinine 0.6 mg/dL (0.5-0.9) 08/31/24 18:54 GFR Calculation 117.4 mL/min (90-130) 08/31/24 18:54 Glucose 85 mg/dL (65-115) 08/31/24 18:54 Calculated Osmolality 281 mOsm/kg (285-295) L 08/31/24 18:54 Calcium 8.6 mg/dL (8.5-10.5) 08/31/24 18:54 Magnesium 1.6 mg/dL (1.7-2.3) L 08/31/24 18:54 Total Bilirubin 0.5 mg/dL (0.15-1.2) 08/31/24 18:54 AST 22 U/L (0-32) 08/31/24 18:54 ALT 32 U/L (0-33) 08/31/24 18:54 Alkaline Phosphatase 81 U/L (35-105) 08/31/24 18:54 Total Protein 7.3 g/dL (6.6-8.7) 08/31/24 18:54 Albumin 4.4 g/dL (3.5-5.2) 08/31/24 18:54 Globulin 2.9 g/dL (1.3-4.6) 08/31/24 18:54 Lipase 26 U/L (13-60) 08/31/24 18:54 HCG, Qual Negative (Negative) 08/31/24 18:54 Urine Color Yellow (Yellow) 08/31/24 18:54 Urine Appearance Clear (CLEAR) 08/31/24 18:54 Urine pH 6.5 (5-7) 08/31/24 18:54 Ur Specific [place] 1.005 (1.005-1.030) 08/31/24 18:54 Urine Protein Negative (Negative) 08/31/24 18:54 Urine Glucose (UA) Negative (Normal) 08/31/24 18:54 Urine Ketones Negative (Negative) 08/31/24 18:54 Urine Blood Negative (Negative) 08/31/24 18:54 Urine Nitrate Negative (Negative) 08/31/24 18:54 Urine Bilirubin Negative (Negative) 08/31/24 18:54 Urine Urobilinogen 1.0 mg/dL (Negative) 08/31/24 18:54 Ur Leukocyte Esterase Negative (Negative) 08/31/24 18:54 Urine RBC 0-2 /hpf (0-2) 08/31/24 18:54 Urine WBC 0-5 /hpf (0-5) 08/31/24 18:54 Ur Squamous Epith Cells 0-5 /hpf (0-5) 08/31/24 18:54 Amorphous Sediment Not Reportable 08/31/24 18:54 Urine Bacteria None seen /hpf (NONE) 08/31/24 18:54 Hyaline Casts 1.21 /lpf 08/31/24 18:54 No radiology studies performed this visit Discharge Plan Discharge Patient Disposition: Home Clinical Impression: Hypokalemia, Flank pain Condition: Stable Prescriptions: New potassium chloride 40 mEq/15 mL liquid 40 meq PO BID 5 Days Qty: 150 0RF No Action Nexplanon 68 mg implant subdermal ondansetron 4 mg tablet,disintegrating 4 mg PO Q6H PRN (Reason: nausea and vomiting) Qty: 12 0RF Rx Instructions: 340b please dicyclomine 10 mg capsule 10 mg PO TID Qty: 12 0RF Discharge Orders: Discharge ED (Routine); Ordered 08/31/24 Ordered By: Hannah Rocha Discharge Diet: Advance as tolerated Discharge Activity: Resume usual activity Patient Instructions: Hypokalemia (ED), Flank Pain (ED) Coding Level of Care Code ED Manager Secondary for Viry Metcalf
[2024-08-31 19:04] LABS: Bilirubin Urine Negative (Negative); Blood Urine Negative (Negative); Glucose Urine UA Negative (Normal); Ketones Urine Negative (Negative); Leukocyte Esterase Urine Negative (Negative); Nitrate Urine Negative (Negative); Protein Urine Negative (Negative); Specific Gravity, Urine 1.005 (1.005-1.030); Urine Appearance Clear (CLEAR); Urine Color Yellow (Yellow); pH Urine 6.5 (5-7)
[2024-08-31 19:05] LABS: Basophils % 0.4 %; Eosinophils % 0.2 %; Hematocrit 36.8 % (36-47); Lymphocytes % 20.8 %; Mean Corpuscular Volume 88.5 fl (85-98); Mean Platelet Volume 11.5 fL (7.4-10.4); Monocytes # 0.3 10^3/uL (0.2-0.9); Neutrophils # 3.35 10^3/uL (1.8-7.7); Neutrophils % 71.2 %; Nucleated Red Blood Cells % 0 %; Platelet Count 245 10^3/cmm (157-399); Red Blood Count 4.16 10^6/uL (3.85-5.65); Red Cell Distribution Width 13.5 % (12.1-15.1); White Blood Count 4.71 10^3/uL (3.29-11.43)
[2024-08-31 19:08] LABS: Add Urine Microscopic? YES; Bacteria Urine None Seen /hpf; Hyaline Casts Urine 1.21 /lpf; RBC Urine 0-2 /hpf (0-2); Squamous Epithelial Cell Urine 0-5 /hpf (0-5); WBC Urine 0-5 /hpf (0-5)
[2024-08-31 19:18] LABS: HCG, Serum Qual Negative (Negative)
[2024-08-31 19:26] LABS: Alanine Aminotransferase 32 U/L (0-33); Albumin Level 4.4 g/dL (3.5-5.2); Alkaline Phosphatase 81 U/L (35-105); Anion Gap 15.4 (5-19); Aspartate Amino Transferase 22 U/L (0-32); Blood Urea Nitrogen 5 mg/dL (6-20); Calcium 8.6 mg/dL (8.5-10.5); Carbon Dioxide 26 mmol/L (22-29); Chloride 98 mmol/L (98-107); Creatinine Clr Calc Pharmacy 130.8784; Globulin 2.9 g/dL (1.3-4.6); Glomerular Filtration Rate 117.4 mL/min (90-130); Glucose 85 mg/dL (65-115); Lipase 26 U/L (13-60); Osmolality Calculated 281 mOsm/kg (285-295); Sodium 137 mmol/L (136-145); Total Bilirubin 0.5 mg/dL (0.15-1.2); Total Protein 7.3 g/dL (6.6-8.7)
[2024-08-31 19:28] LABS: Potassium 2.4 mmol/L (3.5-5.1)
[2024-08-31] MEDS: potassium chloride ER 20 mEq Tablet 60 MEQ PO (19:47)
[2024-08-31 19:48] LABS: Magnesium 1.6 mg/dL (1.7-2.3)
[2024-08-31] MEDS: magnesium sulfate premix 2 GM/50 ML PIGGYBACK IV (20:36)
[2024-08-31 20:37] VITALS: BP 106/50; PULSE 74; O2SAT 96
[2024-08-31 21:13] VITALS: BP 106/50; PULSE 88; O2SAT 98
== END 2024-08-31 21:14 | disposition home or self-care (01) ==
PROVIDERS: Emergency Provider Emergency Medicine
DX: E87.6 Hypokalemia (principal); R10.9 Unspecified abdominal pain; F17.210 Nicotine dependence, cigarettes, uncomplicated
CPT/HCPCS: 36415; 80053; 81001; 83690; 83735; 84703; 85025; 96365; 99284; J3475

== ENCOUNTER 2024-09-10 16:40 | Emergency (ER) | payer MEDICAID, SELFPAY ==
[2024-09-10 16:48] VITALS: BP 103/66; PULSE 87; RESP 17; TEMP 36.8; O2SAT 97; BMI 20.5
[2024-09-10 18:15] LABS: Basophils % 0.5 %; Eosinophils % 0.4 %; Hematocrit 37.2 % (36-47); Lymphocytes # 1.4 10^3/uL (0.8-4.8); Lymphocytes % 17.9 %; Mean Corpuscular HGB Conc 33.6 g/dL (30-55); Mean Corpuscular Hemoglobin 30.9 pg (27-33); Mean Corpuscular Volume 92.1 fl (85-98); Mean Platelet Volume 11.1 fL (7.4-10.4); Monocytes # 0.6 10^3/uL (0.2-0.9); Monocytes % 7.7 %; Neutrophils # 5.69 10^3/uL (1.8-7.7); Neutrophils % 73.1 %; Nucleated Red Blood Cells % 0 %; Platelet Count 283 10^3/cmm (157-399); Red Blood Count 4.04 10^6/uL (3.85-5.65); Red Cell Distribution Width 13.6 % (12.1-15.1); White Blood Count 7.78 10^3/uL (3.29-11.43)
[2024-09-10 18:32] LABS: HCG, Serum Qual Negative (Negative)
[2024-09-10 18:38] LABS: Alanine Aminotransferase 25 U/L (0-33); Albumin Level 4.4 g/dL (3.5-5.2); Alkaline Phosphatase 78 U/L (35-105); Anion Gap 16.2 (5-19); Aspartate Amino Transferase 18 U/L (0-32); Blood Urea Nitrogen 9 mg/dL (6-20); Calcium 9.3 mg/dL (8.5-10.5); Carbon Dioxide 21 mmol/L (22-29); Chloride 101 mmol/L (98-107); Creatinine Clr Calc Pharmacy 113.5999; Globulin 3.3 g/dL (1.3-4.6); Glomerular Filtration Rate 117.4 mL/min (90-130); Glucose 82 mg/dL (65-115); Lipase 14 U/L (13-60); Magnesium 1.7 mg/dL (1.7-2.3); Osmolality Calculated 278 mOsm/kg (285-295); Potassium 3.2 mmol/L (3.5-5.1); Sodium 135 mmol/L (136-145); Total Bilirubin 0.6 mg/dL (0.15-1.2); Total Protein 7.7 g/dL (6.6-8.7)
--- NOTE | 2024-09-10 20:32 | CTR_ITS ---
PROCEDURE INFORMATION: Exam: CT Abdomen And Pelvis With Contrast Exam date and time: 09/10/2024 9:07 PM Age: 29 years old Clinical indication: Vomiting and other: Diarrhea TECHNIQUE: Imaging protocol: Computed tomography of the abdomen and pelvis with contrast. Radiation optimization: All CT scans at this facility use at least one of these dose optimization techniques: automated exposure control; mA and/or kV adjustment per patient size (includes targeted exams where dose is matched to clinical indication); or iterative reconstruction. Contrast material: OMNIPAQUE 350; Contrast volume: 100 ml; Contrast route: INTRAVENOUS (IV); COMPARISON: US OB lmt with transvaginal 12/13/2022 8:59 AM RADIATION DOSE METRICS: Total DLP (mGy-cm): 329.1 FINDINGS: Liver: Normal. No mass. Gallbladder and biliary ducts: Normal. No calcified stones. No ductal dilation. Pancreas: Normal. No ductal dilation. Spleen: Normal. No splenomegaly. Adrenal glands: Normal. No mass. Kidneys and ureters: Normal. No hydronephrosis. Stomach and bowel: Unremarkable. No obstruction. No mucosal thickening. Appendix: The appendix is not visualized but there are no secondary signs of acute appendicitis. Intraperitoneal space: Unremarkable. No free air. No significant fluid collection. Vasculature: Unremarkable. No abdominal aortic aneurysm. Lymph nodes: Unremarkable. No enlarged lymph nodes. Urinary bladder: Unremarkable as visualized. Reproductive: Unremarkable as visualized. Bones/joints: Partially visualized posterior fusion of the upper lumbar and thoracic spine with no evidence of hardware failure or loosening. Soft tissues: Unremarkable. CT/CT abdomen pelvis w con* [id number] IMPRESSION: 1. No bowel obstruction or inflammatory process associated with the bowel. 2. No free air or significant free fluid in the abdomen or pelvis. 3. The appendix is not visualized but there are no secondary signs of acute appendicitis.
--- NOTE | 2024-09-10 20:40 | ED_ITS ---
HPI - Nausea/Vomiting/Diarrhea 2 General: Chief complaint: Nausea/Vomiting/Diarrhea Stated complaint: NVD (1month+) Time Seen by Provider: 09/10/24 19:36 Source: patient Mode of arrival: ambulatory Limitations: no limitations History of Present Illness: 29-year-old female who been having vomit ing diarrhea has been off and on since . She had been seen here at hypokalemia was given Zofran and potassium tab states she felt better but over the last few days she states she has been having vomiting diarrhea again some malaise. She denies any pain she denies any fever she denies any worse improving factors. Associated nausea: Yes Associated symtoms: Reports fatigue and nausea; Denies chest pain, dysuria or headache(s) Related Data Home Medications Medication Instructions Recorded Confirmed etonogestrel 68 mg subdermal subdermal 08/24/24 08/29/24 implant (Nexplanon) Previous Rx's Medication Instructions Recorded dicyclomine 10 mg capsule 10 mg PO TID diarrhea, cramping 08/24/24 #12 caps ondansetron 4 mg disintegrating 4 mg PO Q6H PRN nausea and 08/24/24 tablet vomiting #12 tabs metoclopramide HCl 10 mg tablet 10 mg PO Q6H PRN nausea and 09/10/24 (Reglan) vomiting #20 tabs Allergies Allergy/AdvReac Type Severity Reaction Status Date / Time naproxen Allergy chest pains Verified 09/10/24 16:52 cephalexin AdvReac Mild ADR-Itching Verified 09/10/24 16:52 Review of Systems 2 Const: Reports: fatigue; Denies: fever(s), chills, body aches or change in appetite ENMT: Denies: throat pain or dental pain Card: Denies: chest pain Resp: Denies: dyspnea GI: Reports: nausea, vomiting and diarrhea; Denies: abdominal pain : Denies: dysuria Musc: Denies: neck pain or back pain Skin/Breast: Denies: rash Neuro: Denies: headache(s) PFSH ED 2 PFSH: Medical History 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 Garrett Surgical History H/O spinal fusion (~2012) Performed in [place], [place]. Family History Denies family history of Colon cancer Ovarian cancer Diabetes Heart disease Breast cancer Family history of thyroid problem Hypertension Uterine cancer Stroke Hyperchloremia Social History Smoking and tobacco/nicotine status: current every day tobacco/nicotine user cigarettes Alcohol intake: never Substance/Drug Use: never Physical Exam 2 Const: COMMON NORMALS: no acute distress, patient oriented x3 and healthy appearing HENMT: COMMON NORMALS: normocephalic and atraumatic HEAD & SCALP: n ormocephalic and atraumatic Eye: COMMON NORMALS: conjunctivae normal CONJUNCTIVA: Yes conjunctivae normal Neck/C-Spine: COMMON NORMALS: full ROM and supple Chest: COMMONS NORMALS: normal inspection of the chest Resp: COMMON NORMALS: normal respiratory effort, No retractions, No use of accessory muscles and clear to auscultation bilaterally AUSCULTATION: clear to auscultation bilaterally Cardio: COMMON NORMALS: regular rate, regular rhythm and No murmurs present (Cardio) RATE: regular rate RHYTHM: regular rhythm GI: COMMON NORMALS: Normal to inspection, nondistended, normoactive bowel sounds present, Soft to palpation, non-tender and no masses PALPATION: Yes Soft to palpation Extremity: COMMON NORMALS: normal to inspection and full ROM Neuro: COMMON NORMALS: patient oriented x3, moves all extremities and no focal motor deficits Psych: COMMON NORMALS: mental status grossly normal, Normal thought process present and cooperative THOUGHT PROCESS: Normal thought process present Skin: COMMON NORMALS: no rashes or lesions noted and no wounds GENERAL SKIN EXAM: no rashes or lesions noted Course 2 Vital Signs: Vital signs: Vital Signs Temperature 98.3 F 09/10/24 16:48 Pulse Rate 77 09/10/24 21:23 Respiratory Rate 17 09/10/24 16:48 Blood Pressure 97/61 09/10/24 21:23 Pulse Oximetry 99 09/10/24 21:23 Oxygen Delivery Me thod Room Air 09/10/24 16:48 MDM - Nausea/Vomiting/Diarrhea Medical Decision Making Patient presents here with diarrhea vomiting has been ongoing her potassium level here is improved blood work here is otherwise normal abdominal exam is benign CT scan showed no acute findings she has point with her PCP coming up I informed her that if this continues she should talk to her PCP about a possible GI follow-up as well will prescribe her Reglan she is to take Imodium A-D [id number] she is to return if worsening she understands agrees to plan. Medical Records I reviewed the patient's medical records. Lab Data I reviewed the patient's lab results. 09/10/24 17:55 09/10/24 17:55 Radiology Impressions Abdomen/Pelvis CT 09/10/24 20:32 IMPRESSION: 1. No bowel obstruction or inflammatory process associated with the bowel. 2. No free air or significant free fluid in the abdomen or pelvis. 3. The appendix is not visualized but there are no secondary signs of acute appendicitis. Laboratory Results WBC 7.78 10^3/uL (3.29-11.43) 09/10/24 17:55 RBC 4.04 10^6/uL (3.85-5.65) 09/10/24 17:55 Hgb 12.50 g/dL (11.27-16.99) 09/10/24 17:55 Hct 37.2 % (36-47) 09/10/24 17:55 MCV 92.1 fl (85-98) 09/10/24 17:55 MCH 30.9 pg (27-33) 09/10/24 17:55 MCHC 33.6 g/dL (30-55) 09/10/24 17:55 RDW 13.6 % (12.1-15.1) 09/10/24 17:55 Plt Count 283 10^3/cmm (157-399) 09/10/24 17:55 MPV 11.1 fL (7.4-10.4) H 09/10/24 17:55 Neut % (Auto) 73.1 % 09/10/24 17:55 Lymph % (Auto) 17.9 % 09/10/24 17:55 [place] % (Auto) 7.7 % 09/10/24 17:55 Eos % (Auto) 0.4 % 09/10/24 17:55 Baso % (Auto) 0.5 % 09/10/24 17:55 Neut # (Auto) 5.69 10^3/uL (1.8-7.7) 09/10/24 17:55 Lymph # (Auto) 1.4 10^3/uL (0.8-4.8) 09/10/24 17:55 [place] # (Auto) 0.6 10^3/uL (0.2-0.9) 09/10/24 17:55 Eos # (Auto) 0.0 10^3/uL (0.0-0.8) 09/10/24 17:55 Baso # (Auto) 0.0 10^3/uL (0.0-0.1) 09/10/24 17:55 Nucleated RBC % (auto) 0 % 09/10/24 17:55 Nucleated RBCs # 0.0 /100WBC 09/10/24 17:55 Sodium 135 mmol/L (136-145) L 09/10/24 17:55 Potassium 3.2 mmol/L (3.5-5.1) L 09/10/24 17:55 Chloride 101 mmol/L (98-107) 09/10/24 17:55 Carbon Dioxide 21 mmol/L (22-29) L 09/10/24 17:55 Anion Gap 16.2 (5-19) 09/10/24 17:55 BUN 9 mg/dL (6-20) 09/10/24 17:55 Creatinine 0.6 mg/dL (0.5-0.9) 09/10/24 17:55 GFR Calculation 117.4 mL/min (90-130) 09/10/24 17:55 Glucose 82 mg/dL (65-115) 09/10/24 17:55 Calculated Osmolality 278 mOsm/kg (285-295) L 09/10/24 17:55 Calcium 9.3 mg/dL (8.5-10.5) 09/10/24 17:55 Magnesium 1.7 mg/dL (1.7-2.3) 09/10/24 17:55 Total Bilirubin 0.6 mg/dL (0.15-1.2) 09/10/24 17:55 AST 18 U/L (0-32) 09/10/24 17:55 ALT 25 U/L (0-33) 09/10/24 17:55 Alkaline Phosphatase 78 U/L (35-105) 09/10/24 17:55 Total Protein 7.7 g/dL (6.6-8.7) 09/10/24 17:55 Albumin 4.4 g/dL (3.5-5.2) 09/10/24 17:55 Globulin 3.3 g/dL (1.3-4.6) 09/10/24 17:55 Lipase 14 U/L (13-60) 09/10/24 17:55 HCG, Qual Negative (Negative) 09/10/24 17:55 Urine Color Yellow (Yellow) 09/10/24 21:04 Urine Appearance Slightly cloudy (CLEAR) 09/10/24 21:04 Urine pH 5.0 (5-7) 09/10/24 21:04 Ur Specific [place] 1.017 (1.005-1.030) 09/10/24 21:04 Urine Protein Trace (Negative) A 09/10/24 21:04 Urine Glucose (UA) Negative (Normal) 09/10/24 21:04 Urine Ketones 2+ (Negative) H 09/10/24 21:04 Urine Blood Negative (Negative) 09/10/24 21:04 Urine Nitrate Negative (Negative) 09/10/24 21:04 Urine Bilirubin Negative (Negative) 09/10/24 21:04 Urine Urobilinogen 0.2 mg/dL (Negative) 09/10/24 21:04 Ur Leukocyte Esterase Negative (Negative) 09/10/24 21:04 Urine RBC 0-2 /hpf (0-2) 09/10/24 21:04 Urine WBC 6-10 /hpf (0-5) 09/10/24 21:04 Ur Squamous Epith Cells 0-5 /hpf (0-5) 09/10/24 21:04 Amorphous Sediment Not Reportable 09/10/24 21:04 Urine Bacteria Trace /hpf (NONE) 09/10/24 21:04 Hyaline Casts 1.21 /lpf 09/10/24 21:04 All radiology interpretation(s) finalized by discharge Discharge Plan Discharge Patient Disposition: Home Clinical Impression: Diarrhea, Vomiting Condition: Stable Prescriptions: New metoclopramide HCl [Reglan] 10 mg tablet 10 mg PO Q6H PRN (Reason: nausea and vomiting) Qty: 20 0RF No Action Nexplanon 68 mg implant subdermal ondansetron 4 mg tablet,disintegrating 4 mg PO Q6H PRN (Reason: nausea and vomiting) Qty: 12 0RF Rx Instructions: 340b please dicyclomine 10 mg capsule 10 mg PO TID Qty: 12 0RF Discharge Orders: Discharge ED (Routine); Ordered 09/10/24 Ordered By: Hannah Rocha Discharge Diet: Advance as tolerated Discharge Activity: Resume usual activity Patient Instructions: Acute Nausea and Vomiting (ED), Acute Diarrhea (ED) Coding Level of Care Code ED Licensed Pesticide Applicator for Viry Metcalf
[2024-09-10] MEDS: iohexol 350 mg/mL 500 mL Btl (per mL) IV (21:15)
[2024-09-10] MEDS: ondansetron 2 mg/ML SDV 2 mL 4 MG IVP (21:18)
[2024-09-10] MEDS: diphenoxylate/atropine Tablet 2 TAB PO (21:18)
[2024-09-10 21:23] VITALS: BP 97/61; PULSE 77; O2SAT 99
[2024-09-10 21:30] LABS: Bacteria Urine Trace /hpf; Hyaline Casts Urine 1.21 /lpf; RBC Urine 0-2 /hpf (0-2); Squamous Epithelial Cell Urine 0-5 /hpf (0-5)
[2024-09-10 21:47] LABS: Add Urine Microscopic? YES; Bilirubin Urine Negative (Negative); Blood Urine Negative (Negative); Glucose Urine UA Negative (Normal); Ketones Urine 2+ (Negative); Leukocyte Esterase Urine Negative (Negative); Nitrate Urine Negative (Negative); Protein Urine Trace (Negative); Specific Gravity, Urine 1.017 (1.005-1.030); Urine Color Yellow (Yellow); Urobilinogen Urine 0.2 mg/dL (Negative)
[2024-09-10 21:49] LABS: Urine Appearance Slightly Cloudy (CLEAR)
[2024-09-10 22:12] LABS: C.Diff PCR (Lab) NEGATIVE (Negative)
[2024-09-10 22:29] VITALS: BP 104/75; PULSE 80; O2SAT 98
== END 2024-09-10 22:30 | disposition home or self-care (01) ==
PROVIDERS: Emergency Provider Emergency Medicine
DX: R19.7 Diarrhea, unspecified (principal); R11.10 Vomiting, unspecified; F17.210 Nicotine dependence, cigarettes, uncomplicated
CPT/HCPCS: 74177; 80053; 81001; 82274; 83630; 83690; 83735; 84703; 85025; 87045; 87177; 87209; 87427; 87449; 87493; 96374; 99285; J2405

== ENCOUNTER → 2025-05-06 18:06 | Outpatient (BNVA) | payer MEDICAID, SELFPAY | DX: Z20.2 Contact with and (suspected) exposure to infections with a predominantly sexual mode of transmission (principal) | CPT/HCPCS: 81513; 87481; 87491; 87591; 87661 ==